=== PATIENT | male | born 1950 | race Caucasian/White ===

== ENCOUNTER 2025-05-28 12:18 | Inpatient (IN) | payer MEDICARE, SELFPAY ==
--- OUTSIDE RECORDS SUMMARY | 2025-05-18 08:37 | XMS_ITS | Continuity of Care Document ---
Author Organization [facility] Address [facility] [place] [address] Phone Care Team Providers Care Technical Operations Vice President Name Role Phone Dimitrios Lofton NP Unavailable Unavailable Allergies, Adverse Reactions, Alerts Substance Reaction Status Criticality erythromycin base Gastritis Active No Informa tion Medications Medication Instructions Dosage Effective Dates (start - stop) Status Comments sertraline 50 mg tablet take 1 tablet by oral route every day 50 MG - Active venlafaxine ER 75 mg capsule,extended release 24 hr take 1 capsule by oral route every day with food to replace sertraline; after 6 days increase to two daily - Active lisinopril 10 mg tablet take 1 tablet by oral route every day 10 MG - Active spironolactone 25 mg tablet take 0.5 tablet by oral route every day 12.5 MG - Active Eliquis 5 mg tablet take 1 tablet by ora l route 2 times every day 5 MG - Active Farxiga 10 mg tablet take 1 tablet by or al route every day in the morning 10 MG - Active Atorvastatin Calcium Oral Tablet 10 MG TAKE 1 TABLET DAILY FOR CHOLESTEROL - Active Vitamin B-12 1,000 mcg tablet - Active Vitamin D3 50 mcg (2,000 unit) capsule take 1 capsule by oral route (OTC) - Active Procedures Procedure Date Office/Established Level 4 SYST BP LT 130 MM HG DIAST BP < 80 MM HG Visit Complexity Inherent to Certain E&M HG A1C LEVEL LT < 7.0% Office/Established Level 4 SYST BP >= 140 MM HG DIAST BP < 80 MM HG Visit Complexity Inherent to Certain E&M EKG(ELECTROCARDIOGRAM COMPLETE) 025 HG A1C LEVEL LT < 7.0% [facility] MED/CURRENT MED MERGE Echo Color Doppler (TTE W/ Doppler, Comp lete) (TC) Echo Color Doppler (TTE W/ Doppler, Comp lete) (Interp) US Head And Neck (Thyroid) Adult & Pedia tric evaluation Office/Established Level 4 HG A1C LEVEL LT < 7.0% COMP CBC W/AUTO DIFF WBC METABOLIC PANEL TOTAL CA URINALYSIS AUTO W/SCOPE ROUTINE VENIPUNCTURE Office/Established Level 4 SYST BP >= 140 MM HG DIAST BP 80-89 MM HG Visit Complexity Inherent to Certain E&M EKG(ELECTROCARDIOGRAM COMPLETE) HG A1C LEVEL LT < 7.0% HOME VISIT EST PATIENT SYST BP LT 130 MM HG DIAST BP < 80 MM HG HG A1C LEVEL LT < 7.0% [facility] MED/CURRENT MED MERGE Office/Established Level 5 SYST BP LT 130 MM HG DIAST BP < 80 MM HG HG A1C LEVEL LT < 7.0% Visit Complexity Inherent to Certain E&M URINALYSIS AUTO W/O SCOPE X-RAY CHEST (2 View) EKG(ELECTROCARDIOGRAM COMPLETE) SYST BP GE 130 - 139MM HG DIAST BP >= 90 MM HG Office/Established Level 5 HG A1C LEVEL LT < 7.0% Initial Hospital Care 3 Initial Hospital Care 2 SUBSEQUENT HOSPITAL CARE SUBSEQUENT HOSPITAL CARE SUBSEQUENT HOSPITAL CARE SUBSEQUENT HOSPITAL CARE SUBSEQUENT HOSPITAL CARE MODERATE SEDATION, INITIAL 15 MINS, PAT 5 OR OLDER L HRT CATH W/ANGIO OF ARTERY (Interp) SUBSEQUENT HOSPITAL CARE SUBSEQUENT HOSPITAL CARE CARDIOVERSION ELECTRIC EXT MCR Split/Shared Visit ECHO TRANSESOPHAGEAL (Interp) Doppler Color Flow Add-On (Inter) SUBSEQUENT HOSPITAL CARE SUBSEQUENT HOSPITAL CARE HOSPITAL DISCHARGE DAY Office/Established Level 4 SYST BP >= 140 MM HG DIAST BP 80-89 MM HG Visit Complexity Inherent to Certain E&M HG A1C LEVEL LT < 7.0% Excision of nail, partial or complete Nitin Office/New Level 4 HG A1C LEVEL LT < 7.0% US URINE CAPACITY MEASURE Office/Established Level 4 HG A1C LEVEL LT < 7.0% Medicare Subseq Well Vis Office/Established Level 4 SYST BP GE 130 - 139MM HG DIAST BP < 80 MM HG HG A1C LEVEL LT < 7.0% Hemoglobin A1c ASSAY OF PSA TOTAL LIPID PANEL ROUTINE VENIPUNCTURE Office/Established Level 4 SYST BP >= 140 MM HG DIAST BP >= 90 MM HG HG A1C LEVEL LT < 7.0% Pure Tone Audio, Air Threshold and Recognition Tympanometry Office/Established Level 4 Visit Complexity Inherent to Certain E&M SYST BP LT 130 MM HG DIAST BP < 80 MM HG HG A1C LEVEL LT < 7.0% ROUTINE VENIPUNCTURE Hemoglobin A1c ASSAY OF PSA TOTAL LIPID PANEL US URINE CAPACITY MEASURE URINALYSIS AUTO W/O SCOPE Office/Established Level 4 HG A1C LEVEL LT < 7.0% ROUTINE VENIPUNCTURE Medicare Subseq Well Vis Depression screen annual Behavior university counselor obesity 15m SYST BP GE 130 - 139MM HG DIAST BP 80-89 MM HG HG A1C LEVEL LT < 7.0% Office/Established Level 4 LIPID PANEL ROUTINE VENIPUNCTURE Hemoglobin A1c ASSAY OF PSA TOTAL Office/Established Level 4 ROUTINE VENIPUNCTURE Hemoglobin A1c HEPATITIS C AB TEST LIPID PANEL COMPREHEN METABOLIC PANEL Admin pneumococcal vaccine Pneumonia vaccine Medicare Subseq Well Vis SYST BP GE 130 - 139MM HG DIAST BP < 80 MM HG VITAMIN D 25 HYDROXY LIPID PANEL ROUTINE VENIPUNCTURE Office/Established Level 3 ROUTINE VENIPUNCTURE Office/Established Level 4 SYST BP GE 130 - 139MM HG DIAST BP 80-89 MM HG ROUTINE VENIPUNCTURE Office/Established Level 3 Colon-Rem Polyp Snare Removal Impacted Cerumen Office/New Level 4 Comprehensive Audiometry Tympanometry Brief Emotional/behavioral A ssessment W/scoring And Documentation Per Stand. Ins Office/Established Level 4 SYST BP LT 130 MM HG DIAST BP < 80 MM HG ASSAY THYROID STIM HORMONE ASSAY OF PSA TOTAL COMPLETE CBC AUTOMATED VITAMIN D 25 HYDROXY LIPID PANEL HEPATIC FUNCTION PANEL METABOLIC PANEL TOTAL CA ROUTINE VENIPUNCTURE Office/Established Level 3 SYST BP LT 130 MM HG DIAST BP < 80 MM HG Office/Established Level 3 SYST BP >= 140 MM HG DIAST BP 80-89 MM HG URINALYSIS AUTO W/O SCOPE ROUTINE VENIPUNCTURE Admin pneumococcal vaccine Prevar Valent 13 Medicare Annual Well Visit SYST BP LT 130 MM HG DIAST BP < 80 MM HG LIPID PANEL ROUTINE VENIPUNCTURE SYST BP GE 130 - 139MM HG DIAST BP 80-89 MM HG Office/Established Level 4 US URINE CAPACITY MEASURE Office/New Level 3 URINALYSIS AUTO W/O SCOPE ROUTINE VENIPUNCTURE X-RAY CHEST (2 View) Office/Established Level 3 URINALYSIS AUTO W/O SCOPE Office/New Level 4 INFECTIOUS AGENT ANTIGEN DETECTION BY FIONA GONSALES Specimen handling fee Advance Directives Directive Yes / No Effective Date File Name No Information Encounters Encounter Description Practice Location Reason(s) For Visit Diagnoses Date Provider Providers Copied on Encounter [address] , [place], [place], [id number], [place] tel:[phone] Cardiology At [facility] No Information 5 Ismael Plunkett. [address] [place] [address] , [place], [id number], [place]. tel:[phone] Office/Estab lished Level [address] [place] [id number], [place] tel:[phone] [facility] < excessive sweating > (chief complaint) Generalized anxiety disorderDiap horesisBody mass index (BMI) 31.0-31.9, adult Sep- 5 Andre Anthony. [address] [place] [address], [address], [place]. tel:[phone] Referring Provider: Raj Pisano, [address] [place] [address], [facility]. tel:[phone] [place] [id number], [place] tel:[phone] [facility] No Information 5 Andre Anthony. [address] [place] [address], [address], [place]. tel:[phone] Office/Estab lished Level [address] [place], [id number], [place] tel:[phone] [facility] At [facility] CHF (chief complaint)CAD (chief complaint)car diomyopathy (chief complaint) Chronic systolic (congestive) heart failureNon-i schemic cardiomyopat hyTypical atrial flutterAther osclerosis of aki[place] coronary artery of [place] heart without angina pectorisMode rate pulmonary hypertension BradycardiaB linda mass index (BMI) 31.0-31.9, adult 5 Ismael Plunkett. [address] [place] [address] , [place], [place], [id number], [place]. tel: [phone] Referring Provider: Dimitrios Guevara, [address] [place] [address] , [place], [address] . tel:[phone] , [place], [place], [id number], [place] tel: [phone] Special Testing At [facility] No Information Unidentifie d Provider. [address] [place] [address], [address], [place]. Referring Provider: Dimitrios Guevara, [address] [place] [address] , [place], [address] . tel:[phone] Office/Estab lished Level [address] , [place], [place], [id number], [place] tel: [phone] [facility] [place] [address] neck mass (chief complaint) Localized swelling, mass and lump, neckNontoxic multinodular goiterBody mass index (BMI) 32.0-32.9, adult 5 Sky Barlow. [address] [place] [address], [id number], [place]. tel: [phone] Referring Provider: Cain Swanson, [address] [place] [address], [address] . tel:[phone] , [place], [place], [id number], [place] tel: [phone] [facility] At [facility] Acute kidney failure, unspecified 5 Andre Anthony. [address] [place] [address], [address], [place]. tel: [phone] Referring Provider: Raj Pisano, [address] [place] [address], [address]. tel:[phone] Office/Estab lished Level [address] , [place], [id number], [place] [phone] [facility] CHF (chief complaint)car diomyopathy (chief complaint)Lindsey b* (chief complaint)CAD (chief complaint) Chronic systolic (congestive) heart failureTypic al atrial flutterNonis chemic cardiomyopat hyAtheroscle rosis of aki[place] coronary artery of [place] heart without angina pectorisPulm onary hypertension Essential hypertension Body mass index (BMI) 32.0-32.9, adult 5 Ismael Plunkett. [address] [place] [address] , [place], [place], [id number], [place]. [phone] Referring Provider: Lila Perez, [address] [place] [address] , [place], [address] . tel:[phone] HOME VISIT EST PATIENT [address] , [place], [id number], [place] tel:[phone] Home ongoing hospital follow up (chief complaint) HFrEF (heart failure with reduced ejection fraction)Atr ial flutter, unspecified typeMedicati on managementLe ft thyroid nodule 5 Imtiaz Ramírez. [address] [place] [address], [place], [address], [place]. [phone] Referring Provider: Raj Pisano, [address] [place] [address], [address]. tel:[phone] Office/Estab lished Level [address] [place], [id number], [place] [phone] [facility] Follow Up of Transition into Care (chief complaint) Body mass index [BMI] 32.0-32.9, adultAtrial flutter, unspecified typeNon-isch emic cardiomyopat hyBilateral pleural effusionAcut e kidney injuryLeft thyroid noduleRight bundle branch blockModerat e pulmonary hypertension Encounter for follow-up examination after completed treatment for conditions other than malignant neoplasm 5 Andre Anthony. [address] [place] [address], [address], [place]. [phone] Referring Provider: Raj Pisano, [address] [place] [address], [address]. tel:[phone] [place], [id number], [place] tel:[phone] [facility] Unspecified symptoms and signs involving the genitourinar y system 5 Jose Manuel Gordon. [address] [place] [address], [address], [place]. tel:[phone] Referring Provider: Heidi Richard, [address] [place] [address], [address]. tel:[phone] [place], [id number], [place] tel:[phone] [facility] No Information 5 Jose Manuel Gordon. [address] [place] [address], [address], [place]. tel:[phone] Referring Provider: Heidi Richard, [address] [place] [address], [address]. tel:[phone] [facility] Level [address] [place], [id number], [place] tel:[phone] [facility] URI (chief complaint) Urinary symptom or signSOB (shortness of breath)Gener alized weaknessSinu s tachycardiaB linda mass index (BMI) 34.0-34.9, adult 5 Jose Manuel Gordon. [address] [place] [address], [address], [place]. tel:[phone] Referring Provider: Heidi Richard, [address] [place] [address], [address]. tel:[phone] [facility] [address] [place], [id number], [place] tel:[phone] [facility] IP No Information 5 Corrales Wendy. [address] [place] [address], [address], [place]. tel:[phone] Referring Provider: Yue Corrales, [address] [place] [address], [address]. tel:[phone] [facility] [address] , [place], [place], [id number], [place] tel: [phone] [facility] IP No Information 5 Jayce Brannon. [address] [place] [address] , [place], [place], [id number], [place]. tel: [phone] Referring Provider: Clovis Eduardo, [address] [place] [address] , [place], [address] . tel:[phone] [facility] [address] , [place], [id number], [place] tel: [phone] [facility] IP No Information 5 Herminio Melissa. [address] [place] [address], [id number], [place]. tel:[phone] Referring Provider: Shin Durham, [address] [place] [address], [address] . tel:[phone] [facility] [address] , [place], [place], [id number], [place] tel: [phone] [facility] IP No Information 5 Herminio Melissa. [address] [place] [address], [id number], [place]. tel:[phone] Referring Provider: Shin Durham, [address] [place] [address], [address] . tel:[phone] Initial Hospital Care [address] [place] [address] , [place], [place], [id number], [place] tel: [phone] [facility] IP No Information 5 Otilia Contreras. [address] [place] [address], [id number], [place]. tel:[phone] Referring Provider: Ben Bingham, [address] [place] [address], [address] . tel:[phone] Initial Hospital Care [address] , [place], [address], [place] [phone] [facility] IP No Information 5 Maximino Salazar. [facility], [address], [place], [address], [place]. tel:[phone] Referring Provider: Martin Stanton, [address] [place] [address] [address], [place], [address]. tel:[phone] , [place], [id number], [place] [phone] [facility] IP No Information 5 Jayce Brannon. [address] [place] [address] , [place], [place], [id number], [place]. tel:[phone] Referring Provider: Clovis Eduardo, [address] [place] [address] , [place], [address] . tel:[phone] , [place], [id number], [place] tel:[phone] [facility] No Information 5 Andre Anthony. [address] [place] [address], [address], [place]. tel:[phone] Office/Estab lished Level [address] [place], [id number], [place] tel:[phone] [facility] Follow Up of Chronic conditions (chief complaint) Body mass index [BMI] 33.0-33.9, adultElevate d prostate specific antigen [PSA]Essenti al (primary) hypertension Benign head tremorOther and unspecified hyperlipidem iaDepression , major, recurrent, in partial remissionImp aired fasting glucoseMorbi d (severe) obesity due to excess calories 5 Andre Anthony. [address] [place] [address], [address], [place]. tel: [phone] Referring Provider: Raj Pisano, [address] [place] [address], [address]. tel:[phone] Office/New Level [address] [place], [id number], [place] tel: [phone] [facility]le At [facility] Foot Pain (chief complaint) Ingrowing nailHallux valgus with bunions of left footBunion of left foot 5 Noble Toscano. [address] [place] [address] , [place], [place], [id number], [place]. tel:[phone] Referring Provider: Everton Dickey, [address] [place] [address] , [place], [address] . tel:[phone] [facility] Level [address] [place], [id number], [place] tel:[phone] [facility] Elevated PSA (chief complaint)carlyle quency and urge (chief complaint) Elevated prostate specific antigen [PSA]Urgency of urination 4 Darryl Magallanes. [address] [place] [address], [id number], [place]. tel:[phone] Referring Provider: Elpidio Andrews, [address] [place] [address], [address] . tel:[phone] [facility] [address] [place], [id number], [place] tel:[phone] [facility] medicare preventive (chief complaint)Fol low Up of Chronic conditions (chief complaint) Body mass index [BMI] 34.0-34.9, adultEssenti al tremorEssent ial (primary) hypertension Other and unspecified hyperlipidem iaBenign prostatic hyperplasia with lower urinary tract symptoms, symptom details unspecifiedD epression, major, recurrent, in partial remissionEnc ounter for screening for depressionEn cntr for general adult medical exam w/o abnormal findings 4 Andre Anthony. [address] [place] [address], [address], [place]. tel: [phone] Referring Provider: Raj Pisano, [address] [place] [address], [address]. tel:[phone] , [place], [place], [id number], [place] tel: [phone] [facility] Impaired fasting glucoseBenig n prostatic hyperplasia with lower urinary tract symptomsEsse ntial (primary) hypertension 4 Andre Anthony. [address] [place] [address], [address], [place]. tel: [phone] Referring Provider: Raj Pisano, [address] [place] [address], [address]. tel:[phone] Office/Estab lished Level [address] [place], [id number], [place] tel: [phone] [facility] [place] [address] Tinnitus (chief complaint) Unspecified hearing loss, unspecified earSensorine ural hearing loss, bilateralTin nitusBody mass index (BMI) 33.0-33.9, adult 4 Mickie Brannon. [address] [place] [id number], [place]. tel: [phone] Referring Provider: Raj Pisano, [address] [place] [address], [address]. tel:[phone] , [place], [place], [id number], [place] tel: [phone] [facility] [place] [address] Tinnitus, bilateral 4 Wilber Bruce. [address] [place] [address], [address], [place]. tel: [phone] Referring Provider: Clovis Corado, [address] [place] [address], [address] . tel:[phone] Office/Estab lished Level [address] [place], [id number], [place] tel: [phone] [facility] Follow Up of Chronic conditions (chief complaint) Essential (primary) hypertension Depression, major, recurrent, in partial remissionOth er and unspecified hyperlipidem iaImpaired fasting glucoseBenig n prostatic hyperplasia with lower urinary tract symptoms, symptom details unspecifiedM ild cognitive impairmentTr emor of left handBenign head tremorTinnit us, bilateralBod y mass index (BMI) 36.0-36.9, adult 4 Andre Anthony. [address] [place] [address], [address], [place]. tel: [phone] Referring Provider: Raj Pisano, [address] [place] [address], [address]. tel:[phone] [place], [id number], [place] tel: [phone] [facility] Impaired fasting glucoseBenig n prostatic hyperplasia with lower urinary tract symptomsEsse ntial (primary) hypertension 4 Andre Anthony. [address] [place] [address], [address], [place]. tel: [phone] Referring Provider: Raj Pisano, [address] [place] [address], [address]. tel:[phone] Office/Estab lished Level [address] [place], [id number], [place] [phone] [facility] Elevated PSA (chief complaint) Elevated prostate specific antigen [PSA]Frequen cy of micturitionU rinary urgencyBody mass index (BMI) 35.0-35.9, adult 3 Darryl Magallanes. [address] [place] [address], [id number], [place]. tel: [phone] Referring Provider: Elpidio Andrews, [address] [place] [address], [address] . tel:[phone] [place], [id number], [place] tel: [phone] [facility] Impaired fasting glucose 3 Darryl Magallanes. [address] [place] [address], [id number], [place]. tel: [phone] Referring Provider: Elpidio Andrews, [address] [place] [address], [address] . tel:[phone] Office/Estab lished Level [address] [place], [id number], [place] tel: [phone] [facility] Medicare preventive (chief complaint)Fol low Up of Chronic conditions (chief complaint) Essential (primary) hypertension Depression, major, recurrent, in partial remissionBen ign head tremorTremor of left handImpaired fasting glucoseBenig n prostatic hyperplasia with lower urinary tract symptoms, symptom details unspecifiedV itamin D deficiencyEn counter for immunization Body mass index (BMI) 35.0-35.9, adultHyperli pidemia, unspecified Jun- 3 Andre Anthony. [address] [place] [address], [address], [place]. [phone] Referring Provider: Raj Pisano, [address] [place] [address], [address]. tel:[phone] [place], [id number], [place] tel:[phone] Lab At [facility] Essential (primary) hypertension Impaired fasting glucoseBenig n prostatic hyperplasia with lower urinary tract symptoms 3 Andre Anthony. [address] [place] [address], [address], [place]. tel:[phone] Referring Provider: Raj Pisano, [address] [place] [address], [address]. tel:[phone] [place], [id number], [place] tel:[phone] [facility] No Information 3 Andre Anthony. [address] [place] [address], [address], [place]. tel:[phone] [place], [id number], [place] [phone] [facility] Benign prostatic hyperplasia with lower urinary tract symptomsEnco unter for screening for diabetes mellitusImpa ired fasting glucose 3 Andre Anthony. [address] [place] [address], [address], [place]. [phone] Office/Estab lished Level [address] [place], [id number], [place] [phone] [facility] Encounter for screening for depressionBo dy mass index [BMI] 32.0-32.9, adultEssenti al (primary) hypertension Other and unspecified hyperlipidem iaTremor of left handBenign head tremorDepres yolanda, major, recurrent, in partial remission 3 Andre Anthony. [address] [place] [address], [address], [place]. [phone] Referring Provider: Raj Pisano, [address] [place] [address], [facility]. tel:[phone] [place], [id number], [place] [phone] [facility] Essential (primary) hypertension Encounter for screening for diabetes mellitusEnco unter for screening for other viral diseasesHype rlipidemia, unspecified 3 Francis Louie. [address] [place] [address], [address], [place]. tel:[phone] Referring Provider: Jacy Blanco, [address] [place] [address], [address]. tel:[phone] [place], [id number], [place] tel:[phone] [facility] medicare preventive (chief complaint) Body mass index [BMI] 31.0-31.9, adultEncount er for immunization Essential (primary) hypertension Other and unspecified hyperlipidem iaHistory of colon polypsBenign prostatic hyperplasia with lower urinary tract symptoms, symptom details unspecifiedV itamin D deficiencyCl ass 1 obesity due to excess calories with serious comorbidity and body mass index (BMI) of 31.0 to 31.9 in adultEncntr for general adult medical exam w/o abnormal findingsScre ening for viral diseaseScree gloria for diabetes mellitus (DM) 2 Francis Louie. [address] [place] [address], [address], [place]. [phone] Referring Provider: Jacy Blanco, [address] [place] [address], [facility]. tel:[phone] , [place], [place], [id number], [place] tel:[phone] [facility] Vitamin D deficiency, unspecifiedE ssential (primary) hypertension Benign prostatic hyperplasia with lower urinary tract symptoms 2 Andre Anthony. [address] [place] [address], [address], [place]. [phone] Referring Provider: Raj Pisano, [address] [place] [address], [address]. tel:[phone] [place], [id number], [place] [phone] [facility] No Information 2 Andre Anthony. [address] [place] [address], [address], [place]. [phone] Office/Estab lished Level [address] [place], [place], [id number], [place] tel:[phone] [facility] Elevated PSA (chief complaint) Elevated prostate specific antigen [PSA]Body mass index (BMI) 31.0-31.9, adult Sep-0 2 Darryl Magallanes. [address] [place] [address], [id number], [place]. tel:[phone] Referring Provider: Raj Pisano, [address] [place] [address], [address]. tel:[phone] , [place], [id number], [place] tel:[phone] [facility] Benign prostatic hyperplasia with lower urinary tract symptoms, symptom details unspecified 2 Darryl Magallanes. [address] [place] [address], [id number], [place]. tel:[phone] Referring Provider: Elpidio Andrews, [address] [place] [address], [address] . tel:[phone] Office/Estab lished Level [address] [place], [id number], [place] tel:[phone] [facility] Follow Up of Chronic conditions (chief complaint) Essential (primary) hypertension Other and unspecified hyperlipidem iaVitamin D deficiencyEr ectile dysfunction, unspecified erectile dysfunction typeBenign prostatic hyperplasia with lower urinary tract symptoms, symptom details unspecifiedB linda mass index (BMI) 31.0-31.9, adult 2 Andre Anthony. [address] [place] [address], [address], [place]. tel:[phone] Referring Provider: Raj Pisano, [address] [place] [address], [address]. tel:[phone] [place], [id number], [place] tel:[phone] [facility] Vitamin D deficiency, unspecified 2 Darryl Magallanes. [address] [place] [address], [id number], [place]. tel:[phone] Referring Provider: Elpidio Andrews, [address] [place] [address], [address] . tel:[phone] Office/Estab lished Level [address], [place], [place], [id number], [place] tel:[phone] [facility] Follow Up of Diverticulosi s (chief complaint) Diverticulos isHistory of colon polypsBody mass index (BMI) 31.0-31.9, adult 2 Amanda Patricia. [address] [facility], [address], [place], [address], [place]. tel:[phone] Referring Provider: Paul Michael, [facility]4 [facility] [address], [place], [address]. tel:[phone] , [place], [place], [id number], [place] tel:[phone] [facility] No Information 2 Guevara Miller. [facility]4 [facility], [address], [place], [address], [place]. tel:[phone] Referring Provider: Raj Pisano, [address] [place] [address], [address]. tel:[phone] Office/New Level [address] [place], [id number], [place] tel:[phone] [facility] [place] [address] ringing in ears (chief complaint) Unspecified hearing loss, unspecified earSensorine ural hearing loss, bilateralTin nitus of both earsImpacted cerumen, bilateralBod y mass index (BMI) 31.0-31.9, adult 2 Mickie Brannon. [address] [place] [address], [id number], [place]. tel:[phone] Referring Provider: Jacy Blanco, [address] [place] [address], [address]. tel:[phone] [place], [id number], [place] tel:[phone] [facility] [place] [address] Tinnitus of both earsSensorin eural hearing loss, bilateral 2 Wendie Magallanes. [address] [place], [address], [place]. tel: [phone] Referring Provider: Jacy Blanco, [address] [place] [address], [address]. tel:[phone] , [place], [id number], [place] tel: [phone] Surgery At [facility] History of colon polyps 2 Guevara Miller. [address] [facility], [address], [place], [address], [place]. tel: [phone] Office/Estab lished Level [address] [place], [id number], [place] tel: [phone] [facility] Follow Up of Chronic conditions (chief complaint) Essential (primary) hypertension Other and unspecified hyperlipidem iaTinnitus of both earsBenign prostatic hyperplasia with lower urinary tract symptoms, symptom details unspecifiedV itamin D deficiencyBo dy mass index (BMI) 32.0-32.9, adultEncntr for general adult medical exam w/o abnormal findings 2 Andre Anthony. [address] [place] [address], [facility], [place]. tel: [phone] Referring Provider: Jacy Blanco, [address] [place] [address], [address]. tel:[phone] [place], [id number], [place] tel: [phone] [facility] Hyperlipidem ia, unspecifiedE levated prostate specific antigen [PSA]Essenti al (primary) hypertension Vitamin D deficiency, unspecified 2 Francis Louie. [address] [place] [address], [address], [place]. tel: [phone] Referring Provider: Jacy Blanco, [address] [place] [address], [address]. tel:[phone] Office/Estab lished Level [address] [place], [id number], [place] tel: [phone] [facility] Follow Up of Hypertension (chief complaint)Fol low Up of Tinnitus (chief complaint) Body mass index (BMI) 32.0-32.9, adultEssenti al (primary) hypertension Tinnitus of both ears Apr-0 2 Francis Louie. [address] [place] [address], [address], [place]. tel: [phone] Referring Provider: Jacy Blanco, [address] [place] [address], [address]. tel:[phone] [facility] Level [address] [place], [id number], [place] tel: [phone] [facility] Elevated PSA (chief complaint) Elevated prostate specific antigen [PSA]Frequen cy of micturitionB linda mass index (BMI) 31.0-31.9, adult Paul- 2 Darryl Magallanes. [address] [place] [address], [id number], [place]. tel: [phone] Referring Provider: Elpidio Andrews, [address] [place] [address], [address] . tel:[phone] [place], [id number], [place] tel: [phone] [facility] Elevated prostate specific antigen [PSA] 1 Darryl Magallanes. [address] [place] [address], [id number], [place]. tel: [phone] Referring Provider: eRnae Navarro, [address] [place] [address], [address] . tel:[phone] [place], [id number], [place] tel: [phone] [facility] medicare preventive (chief complaint) Other and unspecified hyperlipidem iaVitamin D deficiencyEn counter for immunization Benign prostatic hyperplasia with lower urinary tract symptoms, symptom details unspecifiedE ncntr for general adult medical exam w/o abnormal findingsEsse ntial (primary) hypertension History of colon polypsElevat ed prostate specific antigen [PSA]Erectil e dysfunction, unspecified erectile dysfunction typeBody mass index (BMI) 32.0-32.9, adultClass 1 obesity due to excess calories with serious comorbidity and body mass index (BMI) of 32.0 to 32.9 in adult 1 Francis Jacy. [address] [place] [address], [address], [place]. [phone] Referring Provider: Renae Navarro, [address] [place] [address], [address] . tel:[phone] [place], [place], [id number], [place] [phone] [facility] Essential (primary) hypertension 1 Andre Anthony. [address] [place] [address], [address], [place]. [phone] Referring Provider: Renae Navarro, [address] [place] [address], [address] . tel:[phone] Office/Estab lished Level [address] [place], [id number], [place] tel:[phone] [facility] Follow Up of Chronic conditions (chief complaint) Benign prostatic hyperplasia with lower urinary tract symptoms, symptom details unspecifiedO ther and unspecified hyperlipidem iaEssential (primary) hypertension History of colon polypsBody mass index (BMI) 32.0-32.9, adultVitamin D deficiency 1 Andre Anthony. [address] [place] [address], [address], [place]. tel:[phone] Referring Provider: Raj Pisano, [address] [place] [address], [address]. tel:[phone] [place], [id number], [place] tel:[phone] [facility] Elevated prostate specific antigen [PSA] 1 Darryl Magallanes. [address] [place], [place], [id number], [place]. tel:[phone] Office/[facility] [address] , [place], [place], [id number], [place] [phone] [facility] Sexual dysfunction (chief complaint)Coby vated PSA (chief complaint) Urinary urgencyEleva guevara prostate specific antigen [PSA] 1 Darryl Magallanes. [facility]4 [place], [place], [id number], [place]. [phone] Referring Provider: Renae Navarro, [address] [place] [address], [address] . tel:[phone] , [place], [place], [id number], [place] tel:[phone] [facility] No Information 1 Kailey Garcia. [address] [place] [address], [address], [place]. tel:[phone] Referring Provider: Radha Bonner, [address] [place] [address], [address]. tel:[phone] Office/[facility] [address] , [place], [place], [id number], [place] tel:[phone] [facility] cough (chief complaint) CoughBody mass index (BMI) 32.0-32.9, adult 1 Kailey Garcia. [address] [place] [address], [address], [place]. tel:[phone] Referring Provider: Radha Bonner, [address] [place] [address], [address]. [phone] , [place], [place], [id number], [place] tel:[phone] [facility] Urgency of urination 1 Ramon Macdonald. [address] [place] [address], [id number], [place]. tel:[phone] Referring Provider: Renae Navarro, [address] [place] [address], [address] . tel:[phone] Office/[address] [place], [place], [id number], [place] tel:[phone] [facility] Cough (chief complaint) CoughUrinary urgencySeaso nal allergiesBod y mass index (BMI) 32.0-32.9, adult December- 1 Ramon Macdonald. [address] [place] [address], [id number], [place]. tel:[phone] Referring Provider: Renae Navarro, [address] [place] [address], [address] . tel:[phone] Family History Family Member Type Diagnosis Age At Onset Son Problem Alive and well Problem No family history of Cancer, bladder Brother Problem Substance Abuse Problem Family history of prostate c ancer Father Problem Bilateral Leg Amputation Problem No family history of Stroke Sister Problem Substance Abuse Father Problem Advanced Atherosclerosis Problem No family history of Diabete s mellitus Problem No family history of Cancer, kidney Sister Problem (finding) Brother Problem (finding) Problem No family histor y of Congenital heart disease Father Problem (finding) Son Problem Non Hodgkins Lymphoma 28 Immunizations Vaccine Date Status Comments COVID19 [id number] (Moderna- SPIKEVAX) 12y+ administered Note: [facility] ; Source: Other Provider Fluzone High Dose (65y+) administered Not e: [facility] ; Source: Other Provider COVID-19 Vaccine (Moderna) administered N ote: [facility] recorded by Josefina JEONG on 06/04/2023 ; Source: Public Agency Fluzone HD 65+ administered Note: [facility] rec orded by Josefina JEONG on 06/04/2023 ; Source: School Record Pneumococcal polysaccharide PPV23 administered Source: New Immuniza tion Record COVID-19 Vaccine (Moderna) administered N ote: [facility] ; Source: Public Agency Fluzone HD 65+ administered Note: [facility] ; S ource: Public Agency COVID-19 Vaccine (Moderna) administered N ote: [facility] recorded by Josefina JEONG ; Source: Public Agency COVID-19 Vaccine (Moderna) administered N ote: [facility] recorded by Josefina JEONG ; Source: Public Agency Pneumococcal conjugate PCV 13 administere d Source: New Immunization Record Fluzone HD 65+ administered [facility] COVID-[facility] Vaccine (Moderna) administered N ote: dates estimated ; Source: Source Unspecified COVID-19 Vaccine (Moderna) administered S ource: Source Unspecified Fluarix 6m+/Flulaval 6m+/Fluzone 6m+/Afluria 6m+ administered Source: [facility] ce Unspecified Payers Payer name Insurance type Covered democrat ID Authoriza tion(s) [employer] Medicare - [id number] Human Medicare - [id number] Human Medicare - [id number] [facility] Medicare - [id number] Social History Type Description Quantity Date Captured Comments Alcohol Use Details Unknown Caffeine Use Details Unknown Tobacco Use Status No Information Smoking Status No Information Sex Male Chief Complaint And Reason For Visit No Information Reason For Referral Reason For Referral No Information Plan Of Treatment Date Type Action Status Goal Tobacco screenin g. Due on due Goal Shingrix 50mcg/0 .5ml (#2). Due on due Goal Hepatitis C screening due Goal Pneumovax 23 due Goal Zoster vaccine ( 1st). Due on due Goal Influenza Vaccin e. Due on due Goal Tdap. Due on due Goal Prevnar 13 (PCV13) due Goal Physical Exam. Due on due Goal Shingrix 50mcg/0 .5ml (#1). Due on due Goal Depression scree gloria. Due on due Goal Colonoscopy. Due on due Goal Diabetes screeni ng. Due on due Goal Td vaccine. Due on due Goal Shingrix 50mcg/0 .5ml (#2). Due on due Goal Colonoscopy. Due on due Goal Depression scree gloria. Due on due Goal Pneumovax 23 due Goal Tobacco screenin g. Due on due Goal Physical Exam. Due on due Goal Td vaccine. Due on due Goal Tdap. Due on due Goal Influenza Vaccin e. Due on due Goal Hepatitis C screening due Goal Shingrix 50mcg/0 .5ml (#1). Due on due Goal Prevnar 13 (PCV13) due Goal Diabetes screeni ng. Due on due Goal Zoster vaccine ( 1st). Due on due Goal Shingrix 50mcg/0 .5ml (#1). Due on due Goal Hepatitis C screening due Goal Tdap. Due on due Goal Pneumovax 23 due Goal Influenza Vaccin e. Due on due Goal Depression scree gloria. Due on due Goal Td vaccine. Due on due Goal Diabetes screeni ng. Due on due Goal Physical Exam. Due on due Goal Prevnar 13 (PCV13) due Goal Shingrix 50mcg/0 .5ml (#2). Due on due Goal Tobacco screenin g. Due on due Goal Zoster vaccine ( ). Due on due Goal Colonoscopy. Due on due Goal Td vaccine. Due on due Goal Depression scree gloria. Due on due Goal Diabetes screeni ng. Due on due Goal Shingrix 50mcg/0 .5ml (#2). Due on due Goal Prevnar 13 (PCV13) due Goal Colonoscopy. Due on due Goal Tdap. Due on due Goal Shingrix 50mcg/0 .5ml (#1). Due on due Goal Physical Exam. Due on due Goal Tobacco screenin g. Due on due Goal Hepatitis C screening due Goal Influenza Vaccin e. Due on due Goal Zoster vaccine ( ). Due on due Goal Pneumovax 23 due Goal Depression scree gloria. Due on due Goal Td vaccine. Due on due Goal Pneumovax 23 due Goal Colonoscopy. Due on due Goal Tobacco screenin g. Due on due Goal Influenza Vaccin e. Due on due Goal Shingrix 50mcg/0 .5ml (#2). Due on due Goal Hepatitis C screening due Goal Zoster vaccine ( ). Due on due Goal Shingrix 50mcg/0 .5ml (#1). Due on due Goal Diabetes screeni ng. Due on due Goal Tdap. Due on due Goal Physical Exam. Due on due Goal Prevnar 13 (PCV13) due Goal Hepatitis C screening due Goal Diabetes screeni ng. Due on due Goal Prevnar 13 (PCV13) due Goal Tobacco screenin g. Due on due Goal Depression scree gloria. Due on due Goal Physical Exam. Due on due Goal Td vaccine. Due on due Goal Tdap. Due on due Goal Influenza Vaccin e. Due on due Goal Zoster vaccine ( 1st). Due on due Goal Colonoscopy. Due on due Goal Pneumovax 23 due Goal Shingrix 50mcg/0 .5ml (#1). Due on due Goal Shingrix 50mcg/0 .5ml (#2). Due on due Goal Shingrix 50mcg/0 .5ml (#2). Due on due Goal Td vaccine. Due on due Goal Colonoscopy. Due on 027 due Goal Depression scree gloria. Due on due Goal Prevnar 13 (PCV13) due Goal Physical Exam. Due on due Goal Diabetes screeni ng. Due on due Goal Hepatitis C screening due Goal Influenza Vaccin e. Due on due Goal Zoster vaccine ( 1st). Due on due Goal Pneumovax 23 due Goal Tdap. Due on due Goal Shingrix 50mcg/0 .5ml (#1). Due on due Goal Tobacco screenin g. Due on due Goal Influenza Vaccin e. Due on due Goal Shingrix 50mcg/0 .5ml (#2). Due on due Goal Colonoscopy. Due on 027 due Goal Prevnar 13 (PCV13) due Goal Shingrix 50mcg/0 .5ml (#1). Due on due Goal Diabetes screeni ng. Due on due Goal Td vaccine. Due on 25 due Goal Depression scree gloria. Due on due Goal Pneumovax 23 due Goal Tobacco screenin g. Due on due Goal Physical Exam. Due on due Goal Tdap. Due on due Goal Hepatitis C screening due Goal Zoster vaccine ( ). Due on due Goal Dietary manageme nt education, guidance, and counseling completed Goal Physical Exam. Due on due Goal Shingrix 50mcg/0 .5ml (#1). Due on due Goal Depression scree gloria. Due on due Goal Zoster vaccine ( 1st). Due on due Goal Influenza Vaccin e. Due on due Goal Colonoscopy. Due on 027 due Goal Tdap. Due on due Goal Pneumovax 23 due Goal Tobacco screenin g. Due on due Goal Diabetes screeni ng. Due on due Goal Td vaccine. Due on 25 due Goal Hepatitis C screening due Goal Shingrix 50mcg/0 .5ml (#2). Due on due Goal Prevnar 13 (PCV13) due Goal Hepatitis C screening due Goal Prevnar 13 (PCV13) due Goal Physical Exam. Due on due Goal Diabetes screeni ng. Due on due Goal Shingrix 50mcg/0 .5ml (#2). Due on due Goal Pneumovax 23 due Goal Colonoscopy. Due on due Goal Tdap. Due on due Goal Zoster vaccine ( 1st). Due on due Goal Td vaccine. Due on due Goal Shingrix 50mcg/0 .5ml (#1). Due on due Goal Depression scree gloria. Due on due Goal Influenza Vaccin e. Due on due Goal Tobacco screenin g. Due on due Goal Dietary manageme nt education, guidance, and counseling completed Goal Tobacco screenin g. Due on due Goal Depression scree gloria. Due on due Goal Hepatitis C screening due Goal Shingrix 50mcg/0 .5ml (#2). Due on due Goal Influenza Vaccin e. Due on due Goal Colonoscopy. Due on due Goal Tdap. Due on due Goal Physical Exam. Due on due Goal Diabetes screeni ng. Due on due Goal Prevnar 13 (PCV13) due Goal Shingrix 50mcg/0 .5ml (#1). Due on due Goal Td vaccine. Due on due Goal Zoster vaccine ( 1st). Due on due Goal Pneumovax 23 due Goal Prevnar 13 (PCV13) due Goal Tdap. Due on due Goal Physical Exam. Due on due Goal Shingrix 50mcg/0 .5ml (#1). Due on due Goal Zoster vaccine ( 1st). Due on due Goal Hepatitis C screening due Goal Td vaccine. Due on due Goal Depression scree gloria. Due on due Goal Pneumovax 23 due Goal Colonoscopy. Due on due Goal Tobacco screenin g. Due on due Goal Shingrix 50mcg/0 .5ml (#2). Due on due Goal Influenza Vaccin e. Due on due Goal Diabetes screeni ng. Due on due Goal Prevnar 13 (PCV13) due Goal Zoster vaccine ( 1st). Due on due Goal Depression scree gloria. Due on due Goal Diabetes screeni ng. Due on due Goal Influenza Vaccin e. Due on due Goal Shingrix 50mcg/0 .5ml (#2). Due on due Goal Physical Exam. Due on due Goal Shingrix 50mcg/0 .5ml (#1). Due on due Goal Colonoscopy. Due on due Goal Hepatitis C screening due Goal Tdap. Due on due Goal Td vaccine. Due on due Goal Pneumovax 23 due Goal Dietary manageme nt education, guidance, and counseling completed Goal Zoster vaccine ( ). Due on due Goal Depression scree gloria. Due on due Goal Hepatitis C screening due Goal Colonoscopy. Due on due Goal Shingrix 50mcg/0 .5ml (#2). Due on due Goal Shingrix 50mcg/0 .5ml (#1). Due on due Goal Td vaccine. Due on due Goal Diabetes screeni ng. Due on due Goal Tdap. Due on due Goal Physical Exam. Due on due Goal Prevnar 13 (PCV13) due Goal Pneumovax 23 due Goal Influenza Vaccin e. Due on due Goal Hepatitis C screening due Goal Physical Exam. Due on due Goal Diabetes screeni ng. Due on due Goal Shingrix 50mcg/0 .5ml (#1). Due on due Goal Zoster vaccine ( ). Due on due Goal Influenza Vaccin e. Due on due Goal Pneumovax 23 due Goal Depression scree gloria. Due on due Goal Prevnar 13 (PCV13) due Goal Colonoscopy. Due on due Goal Tdap. Due on due Goal Shingrix 50mcg/0 .5ml (#2). Due on due Goal Td vaccine. Due on due Goal Shingrix 50mcg/0 .5ml (#1). Due on due Goal Td vaccine. Due on due Goal Physical Exam. Due on due Goal Prevnar 13 (PCV13) due Goal Colonoscopy. Due on due Goal Influenza Vaccin e. Due on due Goal Depression scree gloria. Due on due Goal Zoster vaccine ( 1st). Due on due Goal Shingrix 50mcg/0 .5ml (#2). Due on due Goal Hepatitis C screening due Goal Pneumovax 23 due Goal Diabetes screeni ng. Due on due Goal Tdap. Due on due Goal Physical Exam. Due on due Goal Colonoscopy. Due on due Goal Prevnar 13 (PCV13) due Goal Tdap. Due on due Goal Td vaccine. Due on due Goal Depression scree gloria. Due on due Goal Pneumovax 23 due Goal Hepatitis C screening due Goal Influenza Vaccin e. Due on due Goal Diabetes screeni ng. Due on due Goal Zoster vaccine ( 1st). Due on due Goal Shingrix 50mcg/0 .5ml (#2). Due on due Goal Shingrix 50mcg/0 .5ml (#1). Due on due Goal Influenza Vaccin e. Due on due Goal Zoster vaccine ( 1st). Due on due Goal Diabetes screeni ng. Due on due Goal Shingrix 50mcg/0 .5ml (#1). Due on due Goal Pneumovax 23 due Goal Prevnar 13 (PCV13) due Goal Depression scree gloria. Due on due Goal Shingrix 50mcg/0 .5ml (#2). Due on due Goal Colonoscopy. Due on 027 due Goal Td vaccine. Due on 24 due Goal Tdap. Due on due Goal Hepatitis C screening due Goal Physical Exam. Due on due Goal Zoster vaccine ( 1st). Due on due Goal Shingrix 50mcg/0 .5ml (#2). Due on due Goal Hepatitis C screening due Goal Prevnar 13 (PCV13) due Goal Shingrix 50mcg/0 .5ml (#1). Due on due Goal Diabetes screeni ng. Due on due Goal Depression scree gloria. Due on due Goal Td vaccine. Due on due Goal Pneumovax 23 due Goal Physical Exam. Due on due Goal Influenza Vaccin e. Due on due Goal Tdap. Due on due Goal Colonoscopy. Due on due Goal Colonoscopy. Due on due Goal Depression scree gloria. Due on due Goal Shingrix 50mcg/0 .5ml (#1). Due on due Goal Diabetes screeni ng. Due on due Goal Shingrix 50mcg/0 .5ml (#2). Due on due Goal Hepatitis C screening due Goal Zoster vaccine ( 1st). Due on due Goal Tdap. Due on due Goal Pneumovax 23 due Goal Td vaccine. Due on due Goal Physical Exam. Due on due Goal Prevnar 13 (PCV13) due Goal Influenza Vaccin e. Due on due Goal Shingrix 50mcg/0 .5ml (#2). Due on due Goal Prevnar 13 (PCV13) due Goal Pneumovax 23 due Goal Zoster vaccine ( 1st). Due on due Goal Influenza Vaccin e. Due on due Goal Colonoscopy. Due on due Goal Depression scree gloria. Due on due Goal Physical Exam. Due on due Goal Diabetes screeni ng. Due on due Goal Hepatitis C screening due Goal Td vaccine. Due on due Goal Shingrix 50mcg/0 .5ml (#1). Due on due Goal Tdap. Due on due Goal Pneumovax 23 due Goal Diabetes screeni ng. Due on due Goal Td vaccine. Due on due Goal Physical Exam. Due on due Goal Zoster vaccine ( 1st). Due on due Goal Colonoscopy. Due on due Goal Shingrix 50mcg/0 .5ml (#1). Due on due Goal Tdap. Due on due Goal Influenza Vaccin e. Due on due Goal Shingrix 50mcg/0 .5ml (#2). Due on due Goal Hepatitis C screening due Goal Prevnar 13 (PCV13) due Goal Depression scree gloria. Due on due Goal Zoster vaccine ( 1st). Due on due Goal Physical Exam. Due on due Goal Shingrix 50mcg/0 .5ml (#1). Due on due Goal Diabetes screeni ng. Due on due Goal Prevnar 13 (PCV1 3). Due on due Goal Depression scree gloria. Due on due Goal Hepatitis C screening due Goal Tdap. Due on due Goal Influenza Vaccin e. Due on due Goal Td vaccine. Due on due Goal Shingrix 50mcg/0 .5ml (#2). Due on due Goal Colonoscopy. Due on 027 due Goal Pneumovax 23. Due on 2071 due Goal Dietary manageme nt education, guidance, and counseling completed Goal Pneumovax 23. Due on 2071 due Goal Shingrix 50mcg/0 .5ml (#1). Due on due Goal Td vaccine. Due on 22 due Goal Prevnar 13 (PCV1 3). Due on due Goal Shingrix 50mcg/0 .5ml (#2). Due on due Goal Influenza Vaccin e. Due on due Goal Physical Exam. Due on due Goal Tdap. Due on due Goal Depression scree gloria. Due on due Goal Hepatitis C scre ening. Due on due Goal Colonoscopy. Due on due Goal Zoster vaccine ( 1st). Due on due Goal Diabetes screeni ng. Due on due Goal Dietary manageme nt education, guidance, and counseling completed Goal Td vaccine. Due on due Goal Depression scree gloria. Due on due Goal Tdap. Due on due Goal Colonoscopy. Due on due Goal Shingrix 50mcg/0 .5ml (#1). Due on due Goal Shingrix 50mcg/0 .5ml (#2). Due on due Goal Physical Exam. Due on due Goal Hepatitis C scre ening. Due on due Goal Pneumovax 23. Due on 2021 due Goal Zoster vaccine ( 1st). Due on due Goal Influenza Vaccin e. Due on due Goal Prevnar 13 (PCV1 3). Due on due Goal Physical Exam. Due on due Goal Prevnar 13 (PCV1 3). Due on due Goal Shingrix 50mcg/0 .5ml (#2). Due on due Goal Influenza Vaccin e. Due on due Goal Tdap. Due on due Goal Colonoscopy. Due on due Goal Zoster vaccine ( 1st). Due on due Goal Shingrix 50mcg/0 .5ml (#1). Due on due Goal Pneumovax 23. Due on 2021 due Goal Td vaccine. Due on due Goal Hepatitis C scre ening. Due on due Goal Depression scree gloria. Due on due Goal Depression scree gloria. Due on due Goal Pneumovax 23. Due on 2021 due Goal Tdap. Due on due Goal Prevnar 13 (PCV1 3). Due on due Goal Shingrix 50mcg/0 .5ml (#2). Due on due Goal Colonoscopy. Due on 027 due Goal Influenza Vaccin e. Due on due Goal Td vaccine. Due on due Goal Physical Exam. Due on due Goal Zoster vaccine ( ). Due on due Goal Shingrix 50mcg/0 .5ml (#1). Due on due Goal Hepatitis C scre ening. Due on due Goal Influenza Vaccin e. Due on due Goal Pneumovax 23. Due on 2021 due Goal Zoster vaccine ( ). Due on due Goal Physical Exam. Due on due Goal Td vaccine. Due on due Goal Colonoscopy. Due on 027 due Goal Shingrix 50mcg/0 .5ml (#1). Due on due Goal Depression scree gloria. Due on due Goal Tdap. Due on due Goal Shingrix 50mcg/0 .5ml (#2). Due on due Goal Hepatitis C scre ening. Due on due Goal Prevnar 13 (PCV1 3). Due on due Goal Influenza Vaccin e. Due on due Goal Shingrix 50mcg/0 .5ml (#2). Due on due Goal Depression scree gloria. Due on due Goal Pneumovax 23. Due on 2021 due Goal Shingrix 50mcg/0 .5ml (#1). Due on due Goal Td vaccine. Due on due Goal Colonoscopy. Due on due Goal Zoster vaccine ( 1st). Due on due Goal Tdap. Due on due Goal Diabetes screeni ng. Due on due Goal Prevnar 13 (PCV1 3). Due on due Goal Hepatitis C scre ening. Due on due Goal Physical Exam. Due on due Goal Td vaccine. Due on due Goal Prevnar 13 (PCV1 3). Due on due Goal Physical Exam. Due on due Goal Shingrix 50mcg/0 .5ml (#1). Due on due Goal Shingrix 50mcg/0 .5ml (#2). Due on due Goal Depression scree gloria. Due on due Goal Influenza Vaccin e. Due on due Goal Pneumovax 23. Due on 2021 due Goal Zoster vaccine ( ). Due on due Goal Colonoscopy. Due on due Goal Hepatitis C scre ening. Due on due Goal Diabetes screeni ng. Due on due Goal Tdap. Due on due Goal Zoster vaccine ( 1st). Due on due Goal Shingrix 50mcg/0 .5ml (#1). Due on due Goal Prevnar 13 (PCV1 3). Due on due Goal Pneumovax 23. Due on 2021 due Goal Influenza Vaccin e. Due on due Goal Tdap. Due on due Goal Physical Exam. Due on due Goal Td vaccine. Due on due Goal Depression scree gloria. Due on due Goal Colonoscopy. Due on due Goal Colonoscopy. Due on due Goal Depression scree gloria. Due on due Goal Td vaccine. Due on due Goal Sigmoidoscopy. Due on due Goal Influenza Vaccin e. Due on due Goal Physical Exam. Due on due Goal Prevnar 13 (PCV1 3). Due on due Goal Tdap. Due on due Goal FOBT. Due on due Goal Pneumovax 23. Due on 2021 due Goal Shingrix 50mcg/0 .5ml (#1). Due on due Goal Zoster vaccine ( 1st). Due on due Goal Influenza Vaccin e. Due on due Goal Shingrix 50mcg/0 .5ml (#1). Due on due Goal Sigmoidoscopy. Due on due Goal Pneumovax 23. Due on 2021 due Goal Tdap. Due on due Goal Prevnar 13 (PCV1 3). Due on due Goal Td vaccine. Due on due Goal Colonoscopy. Due on due Goal FOBT. Due on due Goal Zoster vaccine ( 1st). Due on due Goal Depression scree gloria. Due on due Goal Physical Exam. Due on due Goal Colonoscopy. Due on due Goal Depression scree gloria. Due on due Goal Td vaccine. Due on due Goal Sigmoidoscopy. Due on due Goal Tdap. Due on due Goal Zoster vaccine ( 1st). Due on due Goal Physical Exam. Due on due Goal FOBT. Due on due Goal Pneumovax 23. Due on 2021 due Goal Influenza Vaccin e. Due on due Goal Prevnar 13 (PCV1 3). Due on due Goal Shingrix 50mcg/0 .5ml (#1). Due on due Goal Sigmoidoscopy. Due on due Goal Tdap. Due on due Goal Pneumovax 23. Due on 2021 due Goal Physical Exam. Due on due Goal Depression scree gloria. Due on due Goal Td vaccine. Due on due Goal Prevnar 13 (PCV1 3). Due on due Goal Zoster vaccine ( 1st). Due on due Goal Shingrix 50mcg/0 .5ml (#1). Due on due Goal Influenza Vaccin e. Due on due Goal FOBT. Due on due Goal Colonoscopy. Due on due Goal FOBT. Due on due Goal Colonoscopy. Due on due Goal Tdap. Due on due Goal Pneumovax 23. Due on 2021 due Goal Influenza Vaccin e. Due on due Goal Physical Exam. Due on due Goal Td vaccine. Due on due Goal Zoster vaccine ( 1st). Due on due Goal Sigmoidoscopy. Due on due Goal Depression scree gloria. Due on due Goal Shingrix 50mcg/0 .5ml (#1). Due on due Goal Prevnar 13 (PCV1 3). Due on due Goal Dietary manageme nt education, guidance, and counseling completed Goal Tdap (Peds). Due on due Goal Depression scree gloria. Due on due Goal Pneumovax 23. Due on 2021 due Goal Tdap. Due on due Goal Td vaccine. Due on due Goal Influenza Vaccin e. Due on due Goal Colonoscopy. Due on due Goal Zoster vaccine ( 2nd). Due on due Goal Prevnar 13 (PCV1 3). Due on due Goal Zoster vaccine ( 1st). Due on due Goal Physical Exam. Due on due Goal Td vaccine. Due on 21 due Goal Zoster vaccine ( 1st). Due on due Goal Depression scree gloria. Due on due Goal Prevnar 13 (PCV1 3). Due on due Goal Influenza Vaccin e. Due on due Goal Tdap (Peds). Due on 021 due Goal Physical Exam. Due on due Goal Tdap. Due on due Goal Pneumovax 23. Due on 2020 due Goal Colonoscopy. Due on 022 due Referral Ordered: Referrals: Otolaryngology. Follow-up and Treat. Diagnostic testing Appointment date/timeframe: Routine ordered Referral Ordered: Referrals: Otolaryngology. Consult ordered Referral Ordered: Referrals: Audiology. Evaluate and treat ordered Referral Ordered: Referrals: Gastroenterology. Evaluate and treat. Diagnostic testing Appointment date/timeframe: Routine ordered Appointment [facility] App[facility]ment [facility] App[facility]ment [facility] App[facility]ment [facility] Patient Education Tinnitus: Care Instruct ions completed Future Order: Radiology Order EC HO, Complete ([id number]), Sent on: Sent Future Order: Radiology Order US Head And Neck (Thyroid) Adult & Pediatric evaluation ([id number]), Sent on: Sent Future Order: Radiology Order XR CHEST TWO VIEWS ([id number]), Collected on: , Sent on: Sent Future Order: Lab Order Urinalys is, Routine ([id number]), Sent on: Sent Future Order: Radiology Order XR CHEST TWO VIEWS ([id number]), Collected on: , Sent on: Sent History Of Present Illness Encounter Date Complaint History Of Prese nt Illness < excessive sweating > CHF The patient is c urrently on the following: ZAY inhibitor or ARB (lisinopril 5 mg tablet), Beta Harshad Therapy LVSD (Toprol XL 25 mg tablet,extended release), Aldost Antag (spironolactone 25 mg tablet), Antiplatelet/Anticoag (Eliquis 5 mg tablet), Beta Harshad Therapy (Toprol XL 25 mg tablet,extended release). CAD The patient visi ts the office to be evaluated for coronary artery disease (CAD). The patient is currently on the following: ZAY inhibitor or ARB (lisinopril 5 mg tablet), Beta Harshad Therapy (Toprol XL 25 mg tablet,extended release), Lipid Lowering (Atorvastatin Calcium Oral Tablet 10 MG). He is not on the following: Aspirin and Other Anti-thrombotics. cardiomyopathy neck mass CAD The patient visi ts the office to be evaluated for coronary artery disease (CAD). The patient is currently on the following: ZAY inhibitor or ARB (lisinopril 5 mg tablet), Beta Harshad Therapy (metoprolol tartrate 25 mg tablet), Lipid Lowering (Atorvastatin Calcium Oral Tablet 10 MG). He is not on the following: Aspirin and Other Anti-thrombotics. cardiomyopathy Afib* The patient is b eing evaluated for atrial flutter (). The CHADS2 recommendation scoring is incomplete. CHF The patient is c urrently on the following: ZAY inhibitor or ARB (lisinopril 5 mg tablet), Aldost Antag (spironolactone 25 mg tablet), Antiplatelet/Anticoag (Eliquis 5 mg tablet), Beta Harshad Therapy (metoprolol tartrate 25 mg tablet). He is not on the following: Beta Harshad Therapy LVSD. Follow Up of Transition into Car e Date of Discharge: 2024Date family/patient contacted office: 2024Visit Date: 2024Persons Present at Visit: self and spousePlace of Service: OfficeDischarge Summary Reviewed: YesAccess to Care: Yes Access to medications: Access to Transportation: YesEquipment/Devices: declined life vestAccess to Home Health Care/Community Services: Questions/Comments: admitted for non ischemic cardiomyopathy; atrial flutter; saw Cardiology and hospitalists at [facility] URI The symptoms beg an 1 week ago. The patient presents with fatigue, generalized weakness and nausea. The patient does not present with chills, cough, diarrhea, earache, fever, headache, myalgia or pharyngitis. The symptoms are aggravated by stress. The illness is associated with change in sleep cycle and dyspnea. Follow Up of Chronic conditions Follow Up of Chronic conditions 1) Essential (primary) hypertension (Controlled. takes medication regularly, no headache, no chest pain, no shortness of breath, no palpitations, watching salt in diet, trying to exercise) 2) Benign head tremor (Controlled. the propranolol did not work well, stopped it; has been taking extra B vitamins and it's helped, so monitoring) 3) Other and unspecified hyperlipidemia (Controlled. taking statin regularly, tolerates it well, watches diet, adding fiber to diet) 4) Depression, major, recurrent, in partial remission (Controlled. taking medication regularly, mood is fairly well controlled, no suicidal thoughts, sleep is reasonable) 5) Impaired fasting glucose (Stable. avoiding sugar, exercising regularly, watching carbohydrates, trying to maintain good weight; no polyuria, polydipsia or blurring of vision) Associated symptoms include weight loss. Pertinent negatives include fatigue and pain. Blood pressure classification is stage 1 hypertension. Foot Pain Onset: gradual. Duration: 3 Weeks. Severity level is 4. It occurs intermittently and is fluctuating. Location: left foot (big toe). There is no radiation. The pain is dull. Context: there is no injury. The pain is aggravated by walking and standing. The pain is relieved by rest. Pertinent negatives include bruising, crepitus, decreased mobility, difficulty initiating sleep, joint instability, joint tenderness, limping, locking, nocturnal awakening, nocturnal pain, numbness, popping, spasms, swelling, tingling in the legs and weakness. Additional information: Pt. presents for left great toenail ingrown. Pt. is having pain in left great toe from ingrown toenail. Elevated PSA The problem is c urrently stable. The patient's most recent PSA was 4.1 ng/mL taken on 08/02/2024. Pertinent history includes age over 50 and BPH. The patient does not report modifying factors such as medication or recent 5 SARMAD. Associated symptoms include frequent urination. Additional information: no recent UTI. frequency and urge slightly wors ening Follow Up of Chronic conditions Follow Up of Chronic conditions 1) Essential tremor (onset 07/06/2023; Worse. having more trouble with tremor, interested in trial of treatment) 2) Essential (primary) hypertension (onset 03/14/2022; Controlled. takes medication regularly, no headache, no chest pain, no shortness of breath, no palpitations, watching salt in diet, trying to exercise) 3) Other and unspecified hyperlipidemia (Controlled. taking statin regularly, tolerates it well, watches diet, adding fiber to diet) 4) Benign prostatic hyperplasia with lower urinary tract symptoms, symptom details unspecified (Controlled.) 5) Depression, major, recurrent, in partial remission (Controlled.) Pertinent negatives include fatigue, pain, weight gain and weight loss. Blood pressure classification is stage 1 hypertension. - 08/02/24 labs reviewed. medicare preventive [facility] 10-year Risk of Developing Hard CHD (Myocardial Infarction and Coronary ) is 20%. The ''Up and Go'' test took less than 30 seconds and the patient does not need help with activities of daily living.The patient is at risk for falls.The patient has not fallen in the last year. The patient has smoke detectors in the home. The patient does not have firearms, carbon monoxide detectors in the home. Patient reports using a seatbelt in vehicles. Relevant history is positive for alcohol use. Relevant history is negative for tobacco use. During the past 4 weeks, the patients' health in general has been very good. Things in the past 4 weeks have been going pretty good. In the past 4 weeks, the patient has never been bothered by falling or being dizzy when standing up. In the past 4 weeks, the patient has seldomly experienced sexual related problems. In the past 4 weeks, the patient has never had trouble eating well. In the past 4 weeks, the patient has never had problems with their teeth or dentures. In the past 4 weeks, the patient has never had problems using the telephone During the past 4 weeks, the patient has sometimes felt fatigued. The patient is somewhat confident that they can control and manage most of their health problems. The patient does not live alone. The patient is able to travel alone without help. The patient is able to shop for groceries without help. The patient is able to prepare their own meals. The patient is able to do housework without assistance. The patient is able to handle their own medication without help. During the past 4 weeks, the patient has been able to do very heavy physical activity for at least 2 minutes. Tinnitus The patient pres ents with high pitch Tinnitus in both ears that began 55 years ago. The symptoms are worsened, have been moderate and occur constantly. The symptoms are felt to be related to loud background noise. The patient reports no aggravating factors. The patient reports no relieving factors. The patient reports no ear pain, fullness in ear, headache, hearing loss, insomnia, vertigo or vision changes. Follow Up of Chronic conditions Follow Up of Chronic conditions 1) Essential (primary) hypertension (Controlled. takes medication regularly, no headache, no chest pain, no shortness of breath, no palpitations, watching salt in diet, trying to exercise) 2) Depression, major, recurrent, in partial remission (Controlled. taking medication regularly, mood is fairly well controlled, no suicidal thoughts, sleep is reasonable) 3) Other and unspecified hyperlipidemia (Controlled. taking statin regularly, tolerates it well, watches diet, adding fiber to diet) 4) Impaired fasting glucose (Stable. avoiding sugar, exercising regularly, watching carbohydrates, trying to maintain good weight; no polyuria, polydipsia or blurring of vision) 5) Benign prostatic hyperplasia with lower urinary tract symptoms, symptom details unspecified (Controlled. takes medication(s) regularly, 0-1 nocturia, no problem with stream) 6) Class 2 severe obesity with body mass index (BMI) of 35 to 39.9 with serious comorbidity (Stable. He has gained about 8 pounds in the past year. He is a little more sedentary, diet is a little more rich.) 7) Mild cognitive impairment (Stable. He has some mild distractibility. Difficulty with multitasking. He functions pretty well when he is organized. He has some mild hearing problems and tinnitus.) 8) Tremor of left hand (Stable. Stable, low-grade, not really needing any treatment.) 9) Benign head tremor (Stable. Stable, low-grade, not really needing any treatment. He did have exposure to toxins at the [place].) 10) Tinnitus, bilateral (Worse. His tinnitus is a little worse. His hearing loss might also be a little worse as well. This might kick in a little bit to the cognitive impairment discussed above. His last audiology testing was 2 years ago. This problem developed as he was in the [place] and did shooting without hearing protection.) Associated symptoms include weight gain. Blood pressure classification is stage 1 hypertension. -Jan 04 2024 labs reviewed. Elevated PSA The problem is c urrently stable. The patient's most recent PSA was 4 ng/mL, 21 % free taken on 08/04/2023. Pertinent history includes age over 50 and BPH. The patient does not report modifying factors such as medication or recent 5 SARMAD. Associated symptoms include nocturia , urinary urgency and frequent urination. Pertinent negatives include dysuria. Follow Up of Chronic conditions Medicare preventive [facility] 10-year Risk of Developing Hard CHD (Myocardial Infarction and Coronary ) is 20%. The ''Up and Go'' test took less than 30 seconds and the patient does not need help with activities of daily living.The patient is at risk for falls.The patient has not fallen in the last year. The patient has smoke detectors in the home. The patient does not have firearms, carbon monoxide detectors in the home. Patient reports using a seatbelt in vehicles. Relevant history is positive for alcohol use. Relevant history is negative for tobacco use. During the past 4 weeks, the patients' health in general has been very good. Things in the past 4 weeks have been going very well- could hardly be better. In the past 4 weeks, the patient has never been bothered by falling or being dizzy when standing up. In the past 4 weeks, the patient has sometimes experienced sexual related problems. In the past 4 weeks, the patient has never had trouble eating well. In the past 4 weeks, the patient has never had problems with their teeth or dentures. In the past 4 weeks, the patient has never had problems using the telephone During the past 4 weeks, the patient has sometimes felt fatigued. The patient is very confident that they can control and manage most of their health problems. The patient does not live alone. The patient is able to travel alone without help. The patient is able to shop for groceries without help. The patient is able to prepare their own meals. The patient is able to do housework without assistance. The patient is able to handle their own medication without help. Follow Up of Chronic conditions 1) Essential (primary) hypertension (Controlled. takes medication regularly, no headache, no chest pain, no shortness of breath, no palpitations, watching salt in diet, trying to exercise) 2) Depression, major, recurrent, in partial remission (Controlled. see geriatric depression scale, looking pretty good; taking medication regularly, mood is fairly well controlled, no suicidal thoughts, sleep is reasonable) 3) Benign head tremor (Stable. has mild head veda and some tremor of both upper extremities; was exposed to ground water at [place]; it's stable not major bother but monitoring) 4) Tremor of left hand (Stable. see head tremor) 5) Impaired fasting glucose (Controlled. avoiding sugar, exercising regularly, watching carbohydrates, trying to maintain good weight; no polyuria, polydipsia or blurring of vision) 6) Benign prostatic hyperplasia with lower urinary tract symptoms, symptom details unspecified (Controlled. takes medication(s) regularly, 0-1 nocturia, no problem with stream) 7) Vitamin D deficiency (Unknown. taking vitamin D but has not had level drawn in a while..) Associated symptoms include weight gain. Pertinent negatives include fatigue and pain. Blood pressure classification is stage 1 hypertension. >>>> 2022 labs reviewed. medicare preventive [facility] 10-year Risk of Developing Hard CHD (Myocardial Infarction and Coronary ) is 20%. Relevant history is positive for alcohol use. Relevant history is negative for tobacco use. During the past 4 weeks, the patients' health in general has been excellent. Things in the past 4 weeks have been going pretty good. In the past 4 weeks, the patient has never been bothered by falling or being dizzy when standing up. In the past 4 weeks, the patient has sometimes experienced sexual related problems. In the past 4 weeks, the patient has never had trouble eating well. In the past 4 weeks, the patient has never had problems with their teeth or dentures. In the past 4 weeks, the patient has never had problems using the telephone During the past 4 weeks, the patient has sometimes felt fatigued. The patient is somewhat confident that they can control and manage most of their health problems. The patient does not live alone. The patient is able to travel alone without help. The patient is able to shop for groceries without help. The patient is able to prepare their own meals. The patient is able to do housework without assistance. The patient is able to handle their own medication without help. Elevated PSA The problem is c urrently stable. The patient's most recent PSA was 3.9 ng/mL, 22 % free taken on 04/21/2022. Pertinent history includes age over 50 and BPH. Pertinent negatives include dysuria and urinary urgency. Follow Up of Chronic conditions 1) Essential (primary) hypertension (Controlled. takes medication regularly, no headache, no chest pain, no shortness of breath, no palpitations, watching salt in diet, trying to exercise) 2) Other and unspecified hyperlipidemia (Controlled. taking statin regularly, tolerates it well, watches diet, adding fiber to diet) 3) Vitamin D deficiency (Suboptimal Control. taking vitamin D mostly regularly; getting calcium from mix of supplement and diet; trying to get some weight bearing exercise) 4) Depression, major, single episode, in partial remission (Fair Control. having a lot of sleep trouble since doubling the fluoxetine; help is offset by the sleep trouble; interested in trying something else) 5) Erectile dysfunction, unspecified erectile dysfunction type (Controlled. uses medication for ED as needed, works well, no side effects or problems) 6) Benign prostatic hyperplasia with lower urinary tract symptoms, symptom details unspecified (Controlled. no major stream, flow problems, also followed by Dr. Young in urology, PSA looks stable today) Associated symptoms include weight loss. Pertinent negatives include fatigue and pain. Additional information: going [place] 2 weeks to [place] to [place] [employer] to meet with/serve [employer] [place] commemorating the anniversary of the miracle. Blood pressure classification is stage 1 hypertension. #### Labs from March 10, 2022 reviewed. Follow Up of Chronic conditions Follow Up of Diverticulosis [facility] noscopy with Dr. Waterman January 12, 2022. Personal history of colon polyps. Pathology demonstrates vegetable matter. He did have diverticulosis of the sigmoid and descending colon which was not mentioned on his prior colonoscopy.Is doing well after his colonoscopy. No abdominal pain, fevers, nausea, vomiting, hematochezia, or rectal bleeding. He takes Metamucil every other day, having normal bowel movements. ringing in ears The patient pres ents with high pitch ringing in ears in both ears that began 50 years ago. The symptoms are worsened, have been moderate and occur constantly. The symptoms are felt to be related to loud background noise. There is no history of noise exposure. The patient reports no aggravating factors. The patient reports no relieving factors. The patient reports no difficulty concentrating, dizziness, insomnia or vertigo. Follow Up of Chronic conditions Follow Up of Chronic conditions 1) Essential (primary) hypertension (Controlled. takes medication regularly, no headache, no chest pain, no shortness of breath, no palpitations, watching salt in diet, trying to exercise) 2) Other and unspecified hyperlipidemia (Well Controlled. LDL 60 taking statin regularly, tolerates it well, watches diet, adding fiber to diet) 3) Depression, major, single episode, in partial remission (Fair Control. see geriatric depression scale; taking 10 mg fluoxetine; not great in status at all.. compliant see all screeners below) 4) Tinnitus of both ears (Worse. Has had this for quite a while, had a recent episode exposure to a loud noise and the tinnitus got worse and he possibly has some worsening hearing loss. Its not severe and bothersome but moderately so.) 5) Benign prostatic hyperplasia with lower urinary tract symptoms, symptom details unspecified (Controlled. takes medication(s) regularly, 0-1 nocturia, no problem with stream) 6) Vitamin D deficiency (Fair Control. not very consistent with the vitamin D supplement..) Blood pressure classification is stage 1 hypertension. >> 12/03/2021 labs reviewed. Follow Up of Hypertension The HT N started in 2014. The severity has been described as being mild-moderate. It is currently getting worse. Risk factors include age over age 60, family history HTN, gout or CAD, male gender and obesity. Follow Up of Tinnitus The patien t presents with high pitch and humming Follow Up of Tinnitus in both ears that began 1 week ago. The symptoms are worsened, have been moderate and occur constantly. Aggravating symptoms include loud environments. The patient is also experiencing hearing loss. The patient reports no dizziness, fullness in ear or headache.Additional information:hx of tinnitus - (hx of /loud noises) - seen at [facility] in [place] nothing since. 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 No protection. Elevated PSA The onset was ap proximately 1 year ago. The problem has improved. The patient's most recent PSA was 3.6 ng/mL, 14 % free taken on 09/02/2021. Pertinent history includes age over 50 and BPH. The patient does not report modifying factors such as medication, instrumentation or recent 5 SARMAD. Pertinent negatives include dysuria and urinary urgency. Additional information: no recent UTI. medicare preventive [facility] 10-year Risk of Developing Hard CHD (Myocardial Infarction and Coronary ) is 25%. Recently, the patient has felt little interest or pleasure in doing things. Relevant history is positive for alcohol use. Relevant history is negative for tobacco use. During the past 4 weeks, the patients' health in general has been excellent. Things in the past 4 weeks have been going pretty good. In the past 4 weeks, the patient has never been bothered by falling or being dizzy when standing up. In the past 4 weeks, the patient has sometimes experienced sexual related problems. In the past 4 weeks, the patient has never had trouble eating well. In the past 4 weeks, the patient has never had problems with their teeth or dentures. In the past 4 weeks, the patient has never had problems using the telephone During the past 4 weeks, the patient has sometimes felt fatigued. The patient is very confident that they can control and manage most of their health problems. The patient does not live alone. The patient is able to travel alone without help. The patient is able to shop for groceries without help. The patient is able to prepare their own meals. The patient is able to do housework without assistance. The patient is able to handle their own medication without help. During the past 4 weeks, the patient has been able to do very heavy physical activity for at least 2 minutes. Follow Up of Chronic conditions 1) Benign prostatic hyperplasia with lower urinary tract symptoms, symptom details unspecified (Controlled. Currently using dietary modification. Followed by Dr. Young in urology. Recently taken off of tamsulosin. PSA status is up-to-date.) 2) Other and unspecified hyperlipidemia (Controlled. taking statin regularly, tolerates it well, watches diet, adding fiber to diet) 3) Depression, major, recurrent, moderate (Controlled. taking medication regularly, mood is fairly well controlled, no suicidal thoughts, sleep is reasonable) 4) Essential (primary) hypertension (Controlled. takes medication regularly, no headache, no chest pain, no shortness of breath, no palpitations, watching salt in diet, trying to exercise) 5) History of colon polyps (Stable. Patient is not sure the status but has been on every 5-year colonoscopy.) Pertinent negatives include fatigue, pain, weight gain and weight loss. Follow Up of Chronic conditions Sexual dysfunction Elevated PSA The onset was ap proximately 2 years ago. The problem is currently stable. Reviewed today was a PSA taken on 06/16/2020 with findings of 4.2 ng/mL,19.50%. Pertinent history includes age over 50 and BPH. The patient does not report modifying factors such as medication, instrumentation or recent 5 SARMAD. Associated symptoms include urinary incontinence (urgency), urinary urgency and frequent urination. Pertinent negatives include dysuria. Additional information: no recent UTI. cough Onset: 1 Month. Symptoms are associated with history of allergies and recent cold. Symptoms are not associated with history of asthma, sick family member and smoker. Aggravating factors include exertion and lying down. The denies relieving factors. Associated symptoms include cough (moist), nasal congestion, postnasal drainage and wheezing. Pertinent negatives include dyspnea, fever, headache or hemoptysis. Additional information: Negative COVID testing last week. Finished azithromycin without improvement. Cough (comments) Nasal congestio n, sore throat, fatigue, chills, KHOURY, body aches w/ cough x 2 wks. Cough mostly nonprod, occ prod in am's when awakens.Denies dyspnea.Admits to hx of seasonal allergies. Typically flare this time of yr. Has used Flonase couple of times since start of sx's, as well as Benadryl occ @ [facility].Pt also states he moved here 2 mos ago and has new [place] [facility] [place] Dr Powell in [place]. Is overdue for his PSA. Pt c/o increased urinary urgency since onset of above sx's. He correlates this to increased hydration. Denies dysuria, frequency or hematuria. Cough Onset: 2 Weeks. The severity of the problem is mild. The problem has not changed. The symptoms are persistent. Symptoms are associated with history of allergies. Symptoms are not associated with history of asthma, recent cold, recent travel and sick family member. The denies aggravating factors. Symptoms are relieved by antihistamines and honey. Associated symptoms include cough (non-productive), fatigue, headache, myalgia, nasal congestion and pharyngitis. Pertinent negatives include chills/rigors, dyspnea, fever, otalgia, postnasal drainage, sinus pressure or wheezing. Additional information: No loss of sense of taste or smell. COVID vax approx 2 mos ago. Functional Status Date Functional Assessmen t No Information Instructions Date Instruction Additional Infor gosia Weight-based diureti c management with goal of maintaining dry weight. Sodium restriction of less than 2 grams per day reinforced. Call office for weight gain refractory to titration of diuretics. Related to Chronic systolic (congestive) heart failure Some improvement on today's prelim echo report - official read pending. Continue with current GDMT. Related to Non-ischemic cardiomyopathy Cardiac rehab. Related to Ather osclerosis of [place] coronary artery of [place] heart without angina pectoris Continue with mone reyez medical therapy. Secondary prevention and risk reduction therapies discussed. Related to Atherosclerosis of [place] coronary artery of [place] heart without angina pectoris Will decrease Toprol to 12.5 mg daily. He is instructed to call office for any dizziness or near-syncope. Related to Typical atrial flutter Continue with curren dereje GDMT. He declines Lifevest. Will plan to repeat echo in 1 month after DCCV. Related to Nonischemic cardiomyopathy Weight-based diureti c management with goal of maintaining dry weight. Sodium restriction of less than 2 grams per day reinforced. Call office for weight gain refractory to titration of diuretics. Related to Chronic systolic (congestive) heart failure Dietary management e ducation, guidance, and counseling Related to Body mass index (BMI) 32.0-32.9, adult Dietary management e ducation, guidance, and counseling Related to Body mass index (BMI) 33.0-33.9, adult Dietary management e ducation, guidance, and counseling Related to Body mass index (BMI) 34.0-34.9, adult Dietary management e ducation, guidance, and counseling Related to Body mass index (BMI) 32.0-32.9, adult Health risk assessme nt data reported by patient (including demographics, self assessment of health status, psychosocial risks, behavioral risks, ADLs, Instrumental ADLs) reviewed and HRA scanned to chart. C ognitive function addressed.Medical and Family History reviewed and medications documented. D epression risk, fall risk, hearing impairment, home safety and ability to perform ADLs reviewedWritten screening schedule given to patient for age appropriate preventive services recommended f or the next 10 yrs. C ounseled regarding pts risk factors for various medical conditions and appropriate interventions. 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 Related to Histo ry of colon polyps followed by urology Related to B enign prostatic hyperplasia with lower urinary tract symptoms, symptom details unspecified requesting increase in setraline due to increase anxietySertraline 50mgs q daywill contact office when refill needed for higher dosage GOALS:Increase understanding of Depression and Anxiety feelingAddress issues underlying depressive feelingsParticipate actively in individual and group counselingCorrect irrational thinking which leads to depressionaddress issues of dependence, helplessness, and hopelessnessDecrease extreme symptoms of depression through improved copingENCOURAGE:Identify and treat triggers such as social situations and stressors. Formulate a plan for self-management/mantra. Keep log or diary of symptoms and situationRegular exercise and balanced diet for improvement of symptoms and energy. Avoid ETOH and caffeineDiscuss good sleep hygieneCall office or ED if symptoms worsen acutely. Especially if SI/HI. Related to Major depressive disorder, recurrent, moderate on atorvastatindoing welllabs reviewed PLEASE AVOID RED MEAT ( ANYTHING THAT COMES FROM A COW OR A PIG: BEEF, BURGERS, HAM, JIMÉNEZ, PORT, SAUSAGE, COLD CUTS, ETCFISH, TURKEY, CHICKEN ARE OK).PLEASE EXERCISE DAILYEAT MORE FISH, WALNUTS, OMEGA -3 FATTY ACIDS. Related to Other and unspecified hyperlipidemia well controlledon pablo sinoprilstablelabs reviewed Recommended weight loss as patient's primary strategy to normalize blood sugars. Reviewed medical management of diabetes including ACEI/ARB inhibitor therapy to protect kidneys, statin therapy to control atherosclerosis, aspirin therapy for stroke / heart attack prevention, and medications to control high glucose.Discussed preventive strategies such as foot care and Pneumovax and Flu vaccine. Advised periodic check ups by an eye doctor for early detection of damage to the retina. Advised patient about need for periodic monitoring of their hemoglobin A1c values, kidney function, close monitoring of feet. and control of blood pressure. Urged compliance with all aspects of Diabetes management - diet, activity, checking their blood sugars, checking feet daily, and medications. Discussed complications associated with uncontrolled Diabetes - increased risk of stroke, [place], poor wound healing, diabetic retinopathy and nephropathy. Monitor for complications. Related to Essential (primary) hypertension -Try to add 3-4 days a week of exercise both cardiovascular-Recommended changes to help lower your glucose levels include substituting whole grains for processed products that contain white flour; increasing your intake of vegetables, fruits, poultry, fish and beans; and restricting your intake of sugar and other sweeteners such as molasses and honey.-Reduction of simple carbohydrates white - potatoes, rice, pasta; sugary drinks, high sugary fats & sweets. Related to Class 1 obesity due to excess calories with serious comorbidity and body mass index (BMI) of 31.0 to 31.9 in adult Dietary management e ducation, guidance, and counseling Related to Body mass index (BMI) 31.0-31.9, adult Screening colonoscop y in 5 years.Recommendation for lifestyle modifications associated with reduced risk for colon cancer include regular physical activity, high fiber diet-high in fruits and vegetables, reduced consumption of red meat and processed meat, limit alcohol intake, avoid smoking, and maintain a healthy weight. Related to History of colon polyps Continue Metamucil r egimen, can take daily if needed. High-fiber diet. Increase water intake. Related to Diverticulosis discussed needing to protect hearing during concertsreferral to ENT/[employer] Officer Related to Tinnitus of both ears BP well controlled o n Lisinopril 10mgs q daydiscussed having (PORTABLE SAWMILL OPERATOR) manually check BP 2 times a week to keep eyeor get arm BP cuffif starts to increase contact - for BID directions Related to Essential (primary) hypertension Dietary management e ducation, guidance, and counseling Related to Body mass index (BMI) 32.0-32.9, adult stablemonitor Related to Gambier guevara prostate specific antigen [PSA] reviewed labs with p atient - post visit by phone/electronically if availablereviewed overall medical status including other providers, health maintenance issues; needs going forwardhad screen for depression done today (see under exam/intake)reviewed adequate sleep, regular exercise, sun protection, healthy diet; WENDI, prostate health see updated care guidelines in this document; reviewed those with patient today as part of visit Related to Encntr for general adult medical exam w/o abnormal findings check labs Related to Vitam in D deficiency uncontrolledreports tried on multiple medsfollowed by urology in the past Related to Benign prostatic hyperplasia with lower urinary tract symptoms, symptom details unspecified stableon fluoxetinew as placed on it prior by PCP due to increase depression with COVID GOALS:Increase understanding of Depression and Anxiety feelingAddress issues underlying depressive feelingsParticipate actively in individual and group counselingCorrect irrational thinking which leads to depressionaddress issues of dependence, helplessness, and hopelessnessDecrease extreme symptoms of depression through improved copingENCOURAGE:Identify and treat triggers such as social situations and stressors. Formulate a plan for self-management/mantra. Keep log or diary of symptoms and situationRegular exercise and balanced diet for improvement of symptoms and energy. Avoid ETOH and caffeineDiscuss good sleep hygieneCall office or ED if symptoms worsen acutely. Especially if SI/HI. Related to Depression, major, recurrent, moderate -Try to add 3-4 days a week of exercise both cardiovascular-Recommended changes to help lower your glucose levels include substituting whole grains for processed products that contain white flour; increasing your intake of vegetables, fruits, poultry, fish and beans; and restricting your intake of sugar and other sweeteners such as molasses and honey.-Reduction of simple carbohydrates white - potatoes, rice, pasta; sugary drinks, high sugary fats & sweets. Related to Class 1 obesity due to excess calories with serious comorbidity and body mass index (BMI) of 32.0 to 32.9 in adult requesting Cialis rx Related to Erectile dysfunction, unspecified erectile dysfunction type well controlledon li sinopril -Maintain a low-sodium diet (less than 2 grams per day). Maintain a regular cardiovascular exercise program.-Counseled on reducing risk factors to reduce chance of heart attack/stroke. -Counseled regarding importance of weight loss. -D.A.S.H. diet recommended. Related to Essential (primary) hypertension stablereviewed labso n atorvastatin PLEASE AVOID RED MEAT ( ANYTHING THAT COMES FROM A COW OR A PIG: BEEF, BURGERS, HAM, JIMÉNEZ, PORT, SAUSAGE, COLD CUTS, ETCFISH, TURKEY, CHICKEN ARE OK).PLEASE EXERCISE DAILYEAT MORE FISH, WALNUTS, OMEGA -3 FATTY ACIDS. Related to Other and unspecified hyperlipidemia referral for colonos copyPatient is oriented to new clinic, practice.Chart updated, old records requested based on need for information.Contact processes reviewed, encouraged to join patient portal.Walk In care options reviewed.Patient is fully vaccinated for COVID-19. educated. Related to History of colon polyps Continue medication for mood, compliance coaching. Consider for counseling, can facilitate if needed. Call or return promptly for worsening or change in mood or suicidal ideation. Related to Depression, major, recurrent, moderate get enough sleep; wa tch salt; regular exercise; take medication daily, healthy low fat diet Related to Essential (primary) hypertension continue present med ication(s) for the prostateproper dosing reviewed where indicatedavoid caffeine, sodas, and other bladder irritantsdon't drink fluids after 6pm to reduce nocturiacall or return if stream changes or develops worse or new symptoms Related to Benign prostatic hyperplasia with lower urinary tract symptoms, symptom details unspecified Statin is for preven tion of stroke and heart attack, daily compliance for best prevention value is important.Continue current lipid agent(s). Reduce fats in diet. Increase fiber in diet (Metamucil used as directed lowers lipids by 30-40%). Lose weight. Reduce carbohydrate intake. Increase exercise. Related to Other and unspecified hyperlipidemia Continue Flonase Beg in Claritin, Zyrtec or Giselle once daily Related to Seasonal allergies UA collection today to rule out UTI as cause of new symptoms, though likely correlates to increased fluid intake Related to Urinary urgency COVID testing todayM ucinex DM or Robitussin DM as needed for coughQuarantine at home until notified of COVID results Related to Cough Assessments Type Assessment Date No Information Patient Care Teams Name Effective Dates (start - stop) Status Members No Information
--- OUTSIDE RECORDS SUMMARY | 2025-05-22 09:30 | XMS_ITS | Encounter Summary ---
Author Organization [facility] Address [address] [facility] [place] [address] Care Team Providers Care Cabbage Salter Name Role Phone Raj Powell MD Primary Care Provider + [phone] Stacie Daomn RN Unavailable Unav ailable Joe Fletcher RN Unavailable Unavailabl e Reason for Visit * Continual Care for Specialist (Routine) - Authorized Specialty Diagnoses / Procedures Referred By Contact Referred To Contact Cardiac Rehabilitation Diagnoses CHF (congestive heart failure) (*) Heart failure Procedures CONSULT/REFERRAL TO CARDIOPULMONARY REHAB PROGRAM [address] Clovis Eduardo MD [address] [place] [address] [place] [address] Phone: tel:[phone] fax: Counts Include [facility] [address] [address] Phone: tel: fax: Referral ID Status Reason Start Date Expiration Date V isits Requested Visits Authorized [id number] Authorized 04/18/2025 02/21/2026 36 36 Encounter Details Date Type Department Care Team (Late st Contact Info) Description 05/22/2025 9:30 AM EDT - 05/22/2025 11:59 PM EDT Hospital Encounter Counts Include [facility] [address] [address] Cliff Mondragon MD [address] [place] [address] Discharge Disposition: Home or Self Care Social History Tobacco Use Types Packs/Day Years Used Date Smoking Tobacco: Never Smokeless Tobacco: Never Alcohol Use Standard Drinks/Week Comments Yes 0 (1 standard drink = 0.6 oz pur e alcohol) socially [facility] Utilities Answer Date Recorded In the past 12 months has th e electric, gas, oil, or water company threatened to shut off services in your home? No 02/21/2025 AUDIT-C Answer Date Recorded Q1: How often do you have a drink containing alc ohol? 2-4 times a month 02/21/2025 Q2: How many drinks containi ng alcohol do you have on a typical day when you are drinking? 1 or 2 02/21/2025 Q3: How often do you have si x or more drinks on one occasion? Never 02/21/2025 [facility] - Occupational Stress Questionnaire Answer Date Recorded Do you feel stress - tense, restless, nervous, or anxious, or unable to sleep at night because your mind is troubled all the time - these days? To some extent 02/21/2025 Hunger Vital Sign Answer Date Recorded Within the past 12 months, y ou worried that your food would run out before you got the money to buy more. Never true 02/22/20 25 Within the past 12 months, t he food you bought just didn't last and you didn't have money to get more. Never true 02/21/2025 PRAPARE - Transportation Answer Date Re corded In the past 12 months, has l ack of transportation kept you from medical appointments or from getting medications? No 09/2024 In the past 12 months, has l ack of transportation kept you from meetings, work, or from getting things needed for daily living? No 02/26/2025 Housing Stability Vital Sign Answer Margarito e Recorded In the last 12 months, was t here a time when you were not able to pay the mortgage or rent on time? No 02/21/2025 In the past 12 months, how m any times have you moved where you were living? 0 02/21/2025 At any time in the past 12 m [facility], were you homeless or living in a [place] [facility] [place] (including now)? No 02/21/2025 HITS Answer Date Recorded Over the last 12 months how often did your partner physically hurt you? Never 02/20/2025 Over the last 12 months how often did your partner insult you or talk down to you? Never 02/20/2025 Over the last 12 months how often did your partner threaten you with physical harm? Never 02/20/2025 Over the last 12 months how often did your partner scream or curse at you? Never 02/20/2025 Sex and Gender Information Value Date Recorded Sex Assigned at Not on file Legal Sex Male 12:07 PM EDT Gender Identity Not on file Sexual Orientation Not on file documented as of this encounter Medications at Time of Discharge apixaban (ELIQUIS) 5 mg tabletIndications:A trial Fibrillation Take one tablet (5 mg dose) by mouth 2 (two) times daily. 60 tablet 11 02/27/2025 atorvastatin calcium (LIPITOR) 10 mg tablet Take one tablet (10 mg dose) by mouth daily. CYANOCOBALAMIN PO Take 1 each by mouth daily. (Gummies) dapagliflozin (FARXIGA) 10 mg tablet Take one tablet (10 mg dose) by mouth daily. 30 tablet 11 02/28/2025 lisinopril (PRINIVIL,ZESTRIL) 5 mg tablet Take one tablet (5 mg dose) by mouth daily. 30 tablet 02/28/2025 metoprolol succinate (TOPROL XL) 25 mg 24 hr tablet Take one tablet (25 mg dose) by mouth daily. 30 tablet 02/27/2025 sertraline (ZOLOFT) 50 mg tablet Take one tablet (50 mg dose) by mouth daily. spironolactone (ALDACTONE) 25 mg tablet Take one half tablet (12.5 mg dose) by mouth daily. 30 tablet 02/28/2025 documented as of this encounter Progress Notes * Janine Acuna RN - 05/22/2025 9:30 AM EDT [facility] [place] [address] Dept: [phone] Dept INDIVIDUAL CARDIOPULMONARY REHABILITATION TREATMENT PLAN 30 Day Re-Evaluation - 05/22/2025 Patient: Checo Cortes Service Start Date: 04/23/25 MR Number: [id number] Program Attendance: > 75% Date of : 1950 Referral Diagnosis: CHF 02/27/25 Age/Sex: 74 y.o./male GOLD Stage Risk Stratification: High Early DC Reason: Tobacco Use History[1] Social History Substance and Sexual Activity Alcohol Use Yes Comment: socially Current Preventative Meds: ZAY Inhibitor/ARBs; Statin/Lipid Lowering; Other (comment) (Eliquis, Farxiga, and aldactone) Medication Changes: Compliant with medications? Yes Stages of Change: Action Assistive devices: None Non-modifiable risk factors: Age; Gender; Family history Physical limitations: No Modifiable risk factors: Hypertension; Dyslipidemia; Weight Vocational rehab needed? No CLINICAL EVALUATION VITAL SIGNS INITIAL EVAL 30 DAY RE-EVAL Assessment Type -- (Will assess at first session) Resting Blood Pressure 138/80 Heart Rate 64 SpO2% O2 LPM O2 type CARDIAC ASSESSMENT INITIAL EVAL 30 DAY RE-EVAL Angina present? No No Arrhythmia present? Yes No EKG rhythm Normal sinus rhythm (per last EKG: premature supraventricular complexes, first degree AVB, RBBB, and left anterior fasicular block.) Normal sinus rhythm (SR with PACs, PVCs, known 1st degree AVB, RBBB, LAFB) Hypertension status Controlled Uncontrolled (Resting BP at rehab has ranged into 130s) Monitors BP at home? Yes Yes Claudication present? No No Edema present? No No RESPIRATORY ASSESSMENT INITIAL EVAL 30 DAY RE-EVAL Dyspnea Status None None MMRC Dyspnea Scale Home O2 Use? None O2 lpm Exercise O2 lpm Sleep O2 lpm Correct use of supplemental O2? N/A Is supp O2 needed with exercise? No Spirometry Performed? FEV1 N/A FVC N/A FEV1/FVC N/A DLCO N/A Prior Sleep Study? N/A Diagnosis of Sleep Apnea? No PETER Device Oxygen Goals N/A N/A Oxygen Plan/Interventions Progressing Towards Oxygen Goals? Yes Oxygen Progress Note: DIABETES INITIAL EVAL 30 DAY RE-EVAL Diabetes Present? No No Controlled By Patient Reported FBS Patient Reported Non-fasting BS FBS in Range? Monitors Blood Sugar at Home? No Home Monitoring Frequency LAB RESULTS INITIAL EVAL Lipid Panel Date -- (No recent labs available) Total Cholesterol HDL LDL Triglycerides HgbA1C Date -- (No recent labs available) HgbA1C FALL RISK INITIAL EVAL 30 DAY RE-EVAL History of Falling? (0=No; 25=Yes) 0 0 Constantino Fall Risk Score 15 15 EXERCISE CURRENT HOME EXERCISE INITIAL EVAL 30 DAY RE-EVAL Current Home Exercise? Yes Yes Mode of Exercise Treadmill Treadmill Exercise Frequency (days/week) 3 3 Duration per Session (min) 20 20 Resistance Training? Yes Yes Type of Resistance Dumbbells Dumbbells Bands/Tubes Level w/ Sets/Reps Dumbbell Weight w/ Sets/Reps 8-10 Reps 10 lbs, 2-3 Sets; 8-10 Reps; 12-15 Reps Machine Weight w/ Sets/Reps HOME EXERCISE RX INITIAL EVAL 30 DAY RE-EVAL Home Exercise Rx -- (Will determine at first session) Yes Mode of Exercise Treadmill Exercise Frequency (days/week) 3 Duration per Session (min) 20 Resistance Training? Yes Type of Resistance Dumbbells Bands/Tubes Level w/ Sets/Reps Dumbbell Weight w/ Sets/Reps 10 lbs, 2-3 Sets; 8-10 Reps; 12-15 Reps Machine Weights Sets/Reps Home HR Range 93-128 Home METS SIX MINUTE WALK/CYCLE TEST INITIAL EVAL Test Method -- (Did not perform at this time) Assistive Device Used Distance Completed Resting HR Resting BP Resting EKG Resting SpO2% Resting O2 LPM 3 Minute HR 3 Minute SpO2% 3 Minute RPE 3 Minute RPD Peak HR Peak BP Peak EKG Peak SpO2% Peak RPE Peak Beverley RPD Scale Recovery HR Recovery BP Recovery EKG Stopped or Paused Prior to Completion? Estimated METs Test Comments STRENGTH TESTING INITIAL EVAL R 30-sec Arm Curl Reps -- (Did not perform at this time) L 30-sec Arm Curl Reps 30-sec Sit to Stand Reps R Hand Field Contact Technician L Hand Field Contact Technician EXERCISE PRESCRIPTION INITIAL EVAL 30 DAY RE-EVAL Recommended Number of Sessions 24 24 Mode of Exercise NuStep; Recumbent Bike Track; Treadmill; Upright Bike Exercise Frequency (days/week) 2 days/wk at rehab 2 days/wk at rehab; 2-3 at home Duration Per Session (min) 60 45 Intensity Moderate Moderate Target HR Range Rest + 20-30bpm 93-128 Target RPD 0-4 0-4 Include Resistance Training? Yes Yes Type of Resistance Training Dumbbells Dumbbells Bands/Tubes Level w/ Sets/Reps Dumbbell Weight w/ Sets/Reps 8-10 Reps 8 lbs, 2-3 Sets; 8-10 Reps; 12-15 Reps Machine Sets/Reps Maximum METs 4.89 Training METs 3.17 Progression Increased duration and/or intensity of exercise when steady state has occurred in patient specific target O2%, target HR, RPE and RPD without untoward events Increased duration and/or intensity of exercise when steady state has occurred in patient specific target O2%, target HR, RPE andRPD without untoward events Exercise Prescription Comments Exercise Goals Blood Pressure within specified parameters; Improved activity tolerance/functional capacity; Demonstrates ability to self-monitor heart rate Blood Pressure within specified parameters;Improved activity tolerance/functional capacity; Demonstrates ability to self-monitor heart rate Progressing Towards Exercise Goal? Yes Yes Exercise Progress Note: Patient will attend group sessions and education Pt continues to increase his intensities and add new modalities, as tolerated. Pt will continue to attend group education classes. Exercise Interventions: Functional Status Assessment, Vital Signs Assessment, Cardiac Assessment. Information provided to patient on: Self monitoring heart rate Blood pressure goals Exercise safety Equipment orientation Warm up/ cool down RPE/RPD scales PAD scale (if indicated) Angina scale General pain scale Aerobic training exercise program Resistance training exercise program NUTRITION WEIGHT MANAGEMENT INITIAL EVAL 30 DAY RE-EVAL Weight 231 lb (104.8 kg) 237 lb (107.5 kg) Height 6' 1 (1.854 m) 6' 1 (1.854 m) BMI 30.5 31.3 Waist Circumference (in) N/A Weight Status Obese (BMI more than 30) Obese (BMI more than 30) Weight Goal 10 lb weight loss in CR. 10 lb weight loss in CR. Goal Progress Yes Yes NUTRITIONAL STATUS INITIAL EVAL 30 DAY RE-EVAL Nutrition Plan Cardiac Cardiac Picture Your Plate Score N/A Picture Your Plate Interpretation N/A Rate Your Plate Score N/A Rate Your Plate Interpretation N/A Other Assessment Tool Nutrition Readiness Score=29. A score greater than 22 likely indicates a healthy dietary pattern, although there may still be specific behaviors to improve N/A Nutrition Goals Adherence to nutrition care plan; Pt will progress towards BMI <25, waist circ <40 in males/ <35 in females; Body weight within specified parameters; HbA1C <7%; Knowledge of nutritional requirements Adherence to nutrition care plan; Pt will progress towards BMI <25, waist circ <40 in males/ <35 in females; Body weight within specified parameters; HbA1C <7%;Knowledge of nutritional requirements Recommended Dietary Goals Eat 3 balanced meals and 1-2 healthy snacks per day; Choose lean protein sources; Increase total vegetable and fruit intake; Limit/avoid processed meats; Limit/avoid fried foods; Drink enough water daily to support adequate hydration; Limit sodium to no more than 2000mg per day; Plan meals to contain a protein, vegetable, and healthy starch Eat 3 balanced meals and 1-2 healthy snacks per day; Choose lean protein sources; Increase total vegetable and fruit intake; Limit/avoid processed meats; Limit/avoid fried foods; Drink enough water daily to support adequate hydration; Limit sodium to no more than 2000mg per day; Plan meals to contain a protein, vegetable, and hea lthy starch Progressing Toward Nutrition Goal? Yes Yes Nutrition Progress Note: Patient reports he limits his salt intake and eats foods such as hot cereal, blueberries, nuts, and fish. He is not interested in meeting with RD at this time. Pt states thathe is following a low sodium diet. He is choosing lean sources of protein, and incorporating a mixture of different vegetables with his meals. He is not interested in meeting with the RD at this time. Pt continue to attend group educaiton classes. Nutrition Interventions: Nutrition Compliance Assessment Alcohol Use Assessment Blood Glucose Monitoring/Glycemic Control (if indicated) Body Weight/BMI Assessment and Monitoring Lipid Nutrition Management Monitoring Heart Failure Nutrition Management (if indicated) Cancer Nutrition Management (if indicated) Registered Dietitian provides Nutrition Education (classes/handouts) to Patient/Caregiver EDUCATION EDUCATIONAL STATUS INITIAL EVAL 30 DAY RE-EVAL Knowledge Test Score N/A Education Score Interpretation N/A Understanding of Rehab Plan Yes Yes Patient Stated Rehab Goals 1. Lose wt 2. Learn about proper diet 3. Manage stress 4. Fast track? 1.Lose wt 2. Learn about proper diet 3. Manage stress 4. Fast track? Patient Stated Goals Updates/Comments Patient states he feels like he has made long strides toward his above goals. Although he has yet to see much change in his weight, he has made several diet changes to be more in line with a heart healthy diet, and he shares that he feels like they are sustainable. He also shares attending the Anxiety- What If? class with the rn social work and having his house sold has drastically helped his stress management. Education Goals Compliance with self-management plan; Knowledge of CAD and cardiovascular risk factors; Knowledge of self-management plan Compliance with self-management plan; Knowledge of CAD and cardiovascular risk factors; Knowledge of self-management plan Progressing Towards Education Goals? Yes Yes Education Progress Note: Patient will continue to attend group sessions and education Patient will continue attending group sessions and receiving educational materials. Education Interventions: Knowledge/Learning Needs Assessment, Therapeutic Regimen Compliance Assessment, Tobacco Use Assessment, Smoking Cessation Counseling (if indicated). Information provided to the patient on: ADL promotion/retraining Dangers of smoking (if indicated) Disease process/management Risk factors Medication management/compliance Sexuality and heart disease (if indicated) LEARNING ASSESSMENT Primary Learner Co-Learner(s) Primary learner name: Florencio Relationship: Patient Barriers: None Preferred language: [place] Proof Sorter required: No Preferred method: Verbal No data recorded Additional information: No data recorded EDUCATION LOG EXERCISE NUTRITION EDUCATION PSYCHOSOCIAL PSYCHOSOCIAL PSYCHOSOCIAL STATUS INITIAL EVAL 30 DAY RE-EVAL Patient Stress Factors None identified N/A Support System Spouse/Significant Other Spouse/Significant Other; Friend Impact on Rehab Course None - patient shows good coping methods None - patient shows good coping methods Psychosocial Goals Able to achieve higher levels of psychosocial functioning; Improved health-related quality of life; Improved levels of coping with psychosocial distress; Improved psychosocial adjustments to diagnosis Able to achieve higher levels of psychosocial functioning; Improved health-related quality of life; Improved levels of coping with psychosocial distress; Improved psychosocial adjustments to diagnosis Progressing towards Psychosocial goals? Yes Yes Psychosocial Interventions None - patient shows good coping methods; Offered counseling session, patient declined None - patient shows good coping methods; Offered counseling session, patient declined; Patient on psychotropic medications; Provide information related to depression signs/symptoms, positive coping methods, relaxation techniques, and stress management. Psychosocial Progress Note: Patient endorses stress related to selling his home. He has had his home on the market for 4 months and is concerned that he is having so much trouble selling it. He feelswell supported by his Fani who is a retired RN. He would like to move to [place] to be closer to his grandchildren. He enjoys walking his dog and spending time with his family. He is interested meeting with stress management but would like to start the program first. Patient shares that his stress levels have been very high the past few months while he and his have been trying to sell their home. They finally have a entry level buyer, and he is preparing to relocate to [facility]. He is very excitesd to be close to family again. He shares that from a health standpoint, he feels great. He feels stronger and notices improved energy levels. He has not had any recurrence of A Flutter and is eager to see his casing tester once more before moving. He enjoyed attending the stress management classes and shares that he has started utilizing some techniques communicated. Declines furtherneed for support and is compliant with medications. Psychosocial/ Rack Cleaner Progress Note: PSYCHOSOCIAL ASSESSMENT TOOLS INITIAL EVAL Eladio QOL Eladio Interpretation Eladio Health/Functioning Eladio Social/Economic Eladio Psychological/Spiritual Eladio Family PHQ-9 Depression Screening 2 (PHQ-8) PHQ-9 Interpretation Minimal Depression (1-4): Their score indicates presence of minimal depressivesymptoms. CAT Assessment Tool CAT Interpretation Psychosocial Assessment Interpretation: Patient scores for each dimension are as follows: MOBILITY 1 SELF-CARE 1 USUAL ACTIVITY 1 PAIN/DISCOMFORT 1 ANXIETY/DEPRESSION 2. (LEVEL 1: indicating no problem LEVEL 2: indicating slight problems LEVEL 3: indicating moderate problems LEVEL 4: indicating severe problems LEVEL 5: indicating unable t o/extreme) Patient perceived their current state of health as a 90 on a scale of 0 to 100. [1] Social History Tobacco Use Smoking Status Never Smokeless Tobacco Never Cosigned by Cliff Mondragon MD at 05/22/2025 8:36 AM EDT documented in this encounter Plan of Treatment Upcoming Encounters Date Type Department Care Team (Late st Contact Info) Description 05/29/2025 9:30 AM EDT Appointment [facility] [address] [place] [address] Cliff Mondragon MD [address] [place] [address] 06/03/2025 9:30 AM EDT Appointment [facility] [address] [place] [address] Cliff Mondragon MD [address] [place] [address] 06/05/2025 9:30 AM EDT Appointment [facility] [address] [place] [address] Cliff Mondragon MD [address] [place] [address] 06/10/2025 9:30 AM EDT Appointment [facility] [place] [address] [place] [address] Cliff Mondragon MD [address] [place] [address] 06/12/2025 9:30 AM EDT Appointment [facility] [place] [address] [place] [address] Cliff Mondragon MD [address] [place] [phone] 06/17/2025 9:30 AM EDT Appointment [facility] [place] [address] [place] [address] Cliff Mondragon MD [address] [place] [phone] 2025 9:30 AM EDT Appointment [facility] [place] [address] [place] [address] Cliff Mondragon MD [address] [place] [address] 06/24/2025 9:30 AM EDT Appointment [facility] [address] [place] [address] Cliff Mondragon MD [address] [place] [address] 06/26/2025 9:30 AM EDT Appointment [facility] [address] [place] [address] Cliff Mondragon MD [address] [place] [address] 07/01/2025 9:30 AM EST Appointment [facility] [place] [address] [place] [address] Cliff Mondragon MD [address] [place] [address] 07/03/2025 9:30 AM EST Appointment [facility] [place] [address] [place] [address] Cliff Mondragon MD [address] [place] [address] 07/08/2025 9:30 AM EST Appointment [facility] [place] [address] [place] [address] Cliff Mondragon MD [address] [place] [address] 07/10/2025 9:30 AM EST Appointment [facility] [place] [address] [place] [address] Cliff Mondragon MD [address] [place] [address] 07/15/2025 9:30 AM EST Appointment [facility] [address] [place] [address] Cliff Mondragon MD [address] [place] [address] 07/17/2025 9:30 AM EST Appointment Counts Include [facility] [place] [address] [place] [address] Cliff Mondragon MD [address] [place] [address] documented as of this encounter Visit Diagnoses Not on filedocumented in this encounter Care Teams Cabbage Salter Relationship Specialty Start Date End Date Raj Powell MD PCP - General Family Medicine 02/20/25 Stacie Damon, application penetration tester 02/22/25 Joe Fletcher, application penetration tester 02/22/25 documented as of this encounter
[2025-05-28] VITALS (23 sets, daily range): BP systolic 108–153; BP diastolic 24–127; PULSE 70–138; RESP 14–29; TEMP 36.4–38.7; O2SAT 90–100; BMI 30.9
--- NOTE | 2025-05-28 | ECG_ITS ---
Test Reason : ELEVATED HR Blood Pressure : */* mmHG Vent. Rate : 123 BPM Atrial Rate : * BPM P-R Int : * ms QRS Dur : 154 ms QT Int : 352 ms P-R-T Axes : * -86 36 degrees QTcB Int : 503 ms Atrial fibrillation with rapid ventricular response with premature ventricular or aberrantly conducted complexes Right bundle branch block Left anterior fascicular block Bifascicular block Abnormal ECG When compared with ECG of 28-May-2025 14:14, No significant changes seen Referred By: Generic ED Physician Electronically Signed By: NAYAN LEROY
--- NOTE | 2025-05-28 | ECG_ITS ---
Test Reason : AFIB Blood Pressure : */* mmHG Vent. Rate : 83 BPM Atrial Rate : 83 BPM P-R Int : 192 ms QRS Dur : 168 ms QT Int : 394 ms P-R-T Axes : 58 -64 3 degrees QTcB Int : 462 ms Normal sinus rhythm Left axis deviation Right bundle branch block Abnormal ECG When compared with ECG of 28-May-2025 19:34, Sinus rhythm has replaced Atrial fibrillation Referred By: Cristel Moya Electronically Signed By: NAYAN LEROY
--- NOTE | ~2025-05-28 | CT_ITS ---
CLINICAL HISTORY: SOB,fever,intractable cough ?PNA CT chest without contrast Comparison: None provided Findings: Atherosclerotic coronary vascular calcifications are present. 1.7 cm low-density left thyroid cyst or nodules noted. Patchy consolidations or infiltrates are present within bilateral lower lobes associated with moderate bronchial wall thickening The visualized upper abdomen is unremarkable. No acute fractures. IMPRESSION: Bilateral lower lobe consolidations or infiltrates. This document has been electronically signed by: Jacinto Lima MD, PHD on 05/29/2025 00:38:23
--- NOTE | ~2025-05-28 | XR_ITS ---
CLINICAL HISTORY: sob 2 view chest x-ray Comparison: None provided Findings: Portions of the exam are obscured by overlying material. The lungs are clear. Normal size heart. No acute fracture. IMPRESSION: 1. No acute findings. This document has been electronically signed by: Elpidio Chris MD on 05/28/2025 18:25:02
--- NOTE | 2025-05-28 12:26 | ED.GENADULT ---
HPI - General Adult General Chief complaint: Upper Respiratory Symptoms Stated complaint: pneumonia- sent by UC Time Seen by Provider: 05/28/25 14:53 Source: patient Mode of arrival: ambulatory Limitations: no limitations History of Present Illness ED Provider: Dr. Schreiber HPI narrative: This is a 74-year-old male history of atrial flutter, nonischemic cardiomyopathy presented hospital today for evaluation of persistent cough for the past 10 days. Patient stated that he was recently admitted to hospital in [place] where he was diagnosed with atrial flutter, nonischemic cardiomyopathy he has a negative heart catheterization. Patient was prescribed medicines such as spironolactone, lisinopril for his cardiomyopathy. He was placed on Eliquis then. Patient is now up here looking for a house. Patient has been developing cough for the past 10 days status productive in nature. He is also complaining some nasal congestion with this. He states he does feel slightly warm. He does have history of pneumonia in the past. No increased leg swelling on exam no chest pain. No signs of shortness of breath on exertion. Related Data Home Medications ?Medication ?Instructions ?Recorded ?Confirmed apixaban 5 mg tablet (Eliquis) 5 mg PO BID 05/29/25 05/29/25 atorvastatin 10 mg tablet 10 mg PO DAILY 05/29/25 05/29/25 dapagliflozin propanediol 10 mg 10 mg PO DAILY 05/29/25 05/29/25 tablet (Farxiga) lisinopril 10 mg tablet 10 mg PO DAILY 05/29/25 05/29/25 spironolactone 25 mg tablet 12.5 mg PO DAILY 05/29/25 05/29/25 venlafaxine 75 mg capsule,extended 150 mg PO DAILY 05/29/25 05/29/25 release 24 hr Allergies Allergy/AdvReac Type Severity Reaction Status Date / Time No Known Allergies Allergy Verified 05/28/25 12:33 Review of Systems Review of Systems: Pertinent review of systems as mentioned in [facility]. All other system otherwise negative. [facility] Past Medical History [facility] Narrative: Medical history as mentioned in [facility] Medical History (Updated 05/28/25 @ 23:22 by Cristel Moya MD) Nonischemic cardiomyopathy Pulmonary hypertension Right bundle branch block Thyroid nodule Hyperlipidemia Depression Heart failure with reduced ejection fraction History of cardioversion Atrial flutter Social History Social History Alcohol intake: current Alcohol intake frequency: holidays/special occasions only Smoked in Last 30 Days: No Use of substances other than those prescribed or required for medical reasons: No Advance Directives: No Advance Directives Information Provided: No Do you have a plan to hurt others: No Plan Physical Exam ED Exam Exam: General: Pleasant, no distress, interacting appropriately Head: Normacephalic, atraumatic ENT: oral mucosa moist, neck supple, no tracheal deviation Cardiovascular: regular rate, irregular rhythm, no murmurs, rubbing, gallops Respiratory: Diminished lung sounds on the left side, bibasilar crackles bilateral Gastrointestinal: Soft, non distended, non tender, non guarding Extremities: No limb pain or swelling, no calf tenderness Neurological: Awake and alert, no facial droop noted Skin: Warm and dry Psychiatric: Appropriate mood and thoughts Vital Signs: Vital Signs - 24 hr 05/28/25 12:26 05/28/25 14:45 05/28/25 14:45 Temperature 97.5 F 97.5 F Pulse Rate 79 79 Respiratory Rate 20 20 Blood Pressure 143/67 H 143/67 H Pulse Oximetry 97 97 97 Oxygen Delivery Method Room Air Room Air Room Air 05/28/25 16:28 05/28/25 17:52 05/28/25 18:11 Temperature Pulse Rate 95 86 Respiratory Rate 28 H 18 Blood Pressure 153/66 H 153/86 H Pulse Oximetry 95 Oxygen Delivery Method Room Air 05/28/25 19:25 05/28/25 19:39 05/28/25 20:03 Temperature 101.6 F H Pulse Rate 138 H 120 H 103 H Respiratory Rate 26 H 24 H Blood Pressure 136/110 H 136/110 H 127/24 L Pulse Oximetry 90 L 100 Oxygen Delivery Method Room Air Room Air 05/28/25 20:14 05/28/25 20:18 05/28/25 20:32 Temperature Pulse Rate 99 113 H 104 H Respiratory Rate 17 29 H Blood Pressure 124/54 L 133/75 151/81 H Pulse Oximetry Oxygen Delivery Method 05/28/25 20:48 05/28/25 21:03 05/28/25 21:17 Temperature Pulse Rate 111 H 101 H 95 Respiratory Rate 25 H 22 H 23 H Blood Pressure 153/127 H 126/56 L 129/63 Pulse Oximetry Oxygen Delivery Method 05/28/25 21:17 05/28/25 21:32 05/28/25 21:32 Temperature Pulse Rate 95 89 86 Respiratory Rate 23 H 17 17 Blood Pressure 129/63 136/61 136/61 Pulse Oximetry 95 95 Oxygen Delivery Method Room Air 05/28/25 21:40 05/28/25 21:47 Temperature 99.1 F Pulse Rate 85 Respiratory Rate 16 Blood Pressure 129/74 Pulse Oximetry 95 Oxygen Delivery Method BMI result Body Mass Index 30.9 Course Course Course Narrative: This is an RME: Additional HPI, ROS, PE not included below will be deferred to primary provider. RME assessment and note performed by: Radha Jones PA-C This is a [id number]-male, with a past medical history of AFib on Eliquis, pulmonary edema, hypertension, CHF, hyperlipidemia, who presents to the ER with complaints of productive cough with low grade fevers. Patient reports that he has an extensive cardiac history. Patient is visiting from [place], states that in January he was admitted to and hospital after being found to be in pulmonary edema in rapid a flutter. Shortly after that he had a cardioversion. He states that over the last week he has had a cough, and feels very weak. Patient with bibasilar rales noted on exam, very diminished. I received a expect phone call from [facility] urgent care. No pitting edema noted on examination. Informed charge nurse to bring ptt back mill[facility]. Plan: Labs, EKG, chest x-ray, further ER evaluation needed. Medications Administered Generic Name Dose Route Start Last Admin Trade Name Freq PRN Reason Stop Dose Admin Apixaban 5 mg 05/28/25 23:25 05/29/25 08:48 Apixaban 5 Mg Tablet PO 5 mg BID DAWNA Administration Atorvastatin Calcium 10 mg 05/29/25 09:00 05/29/25 08:48 Atorvastatin Calcium 10 Mg Tablet PO 10 mg DAILY DAWNA Administration Lisinopril 10 mg 05/29/25 09:00 05/29/25 08:48 Lisinopril 10 Mg Tablet PO 10 mg DAILY DAWNA Administration Protocol Sodium Chloride 3 ml 05/29/25 00:00 05/29/25 07:42 0.9 % Sodium Chloride Flush 3 Ml Syringe IVFLUSH 3 ml QSHIFT DAWNA Administration Spironolactone 12.5 mg 05/29/25 09:00 05/29/25 08:47 Spironolactone 25 Mg Tablet PO 12.5 mg DAILY DAWNA Administration Protocol Venlafaxine HCl 75 mg 05/29/25 09:00 05/29/25 08:48 Venlafaxine Hcl Er 75 Mg Cap.Er.24h PO 75 mg DAILY DAWNA Administration Discontinued Medications Generic Name Dose Route Start Last Admin Trade Name Franchesca PRN Reason Stop Dose Admin Acetaminophen 975 mg 05/28/25 19:26 05/28/25 19:46 Acetaminophen 325 Mg Tablet PO 05/28/25 19:27 975 mg ONCE ONE Administration Benzonatate 200 mg 05/28/25 20:48 05/28/25 20:52 Benzonatate 100 Mg Capsule PO 05/28/25 20:49 200 mg ONCE ONE Administration Ceftriaxone Sodium 1 gm 05/28/25 19:26 05/28/25 19:53 Ceftriaxone Sodium 1 Gm Vial IVPUSH 05/28/25 19:27 1 gm ONCE ONE Administration Albuterol Sulfate 2.5 mg/ 0 mg 05/28/25 18:06 05/28/25 18:08 Albuterol/Ipratropium 3 ml INHALE 05/28/25 18:07 1 dose ONCE ONE Administration Diltiazem HCl 25 mg 05/28/25 19:26 05/28/25 19:39 Diltiazem Hcl 50 Mg/10 Ml Vial IVPUSH 05/28/25 19:27 25 mg ONCE ONE Administration Doxycycline Monohydrate 100 mg 05/28/25 19:26 05/28/25 19:48 Doxycycline Monohydrate 100 Mg Capsule PO 05/28/25 19:27 100 mg ONCE ONE Administration Furosemide 40 mg 05/28/25 17:40 05/28/25 17:52 Furosemide 40 Mg Tablet PO 05/28/25 17:41 40 mg ONCE ONE Administration Protocol Guaifenesin/Codeine Phosphate 5 ml 05/28/25 17:41 05/28/25 17:52 Guaifen/Codeine Sf 200/20/10ml 10 Ml Liquid PO 05/28/25 17:42 5 ml ONCE ONE Administration Sodium Chloride 1,000 mls @ 999 mls/hr 05/28/25 19:45 05/28/25 20:53 Ns IV 05/28/25 20:45 Infused .Q1H1M DAWNA Infusion Lactated Ringer's 500 mls @ 999 mls/hr 05/28/25 22:03 05/29/25 00:00 Lr IV 05/28/25 22:33 Infused .Q31M STA Infusion Levalbuterol HCl 1.25 mg 05/28/25 22:01 05/28/25 23:02 Levalbuterol Hcl 1.25 Mg/3 Ml Vial.Neb INHALE 05/28/25 22:02 1.25 mg ONCE STA Administration Melatonin 9 mg 05/28/25 22:01 05/28/25 22:37 Melatonin 3 Mg Tablet PO 05/28/25 22:02 9 mg ONCE STA Administration Metoprolol Tartrate 25 mg 05/28/25 20:04 05/28/25 20:14 Metoprolol Tartrate 25 Mg Tablet PO 05/28/25 20:05 25 mg ONCE ONE Administration Protocol Medical Decision Making Medical Decision Making [facility] Narrative: This is a 74-year-old male presented hospital today for evaluation of persistent productive cough for the past 10 days. We will obtain chest x-ray for the patient's EKG did show atrial fibrillation. Patient's BNP is slightly elevated at 926. Patient's alk-phos is normal at 124. to his cardiomyopathy, patient has leukocytosis of 14.5. On my impression I suspect patient may have pneumonia versus bronchitis. We will obtain chest x-ray to see. This sounds more infectious to me like upper respiratory infection. However given his history of cardiomyopathy and may be CHF exacerbation as well. DuoNeb will be given the patient. We will plan to give patient some Lasix. Codeine syrup will be given for cough symptoms Review patient's lab work. He has leukocytosis 14.5 elevated lactic acid of 2.2. Patient's troponin is not elevated BNP slightly elevated. I was consider possible pulmonary edema secondary to CHF. He did get a dose IV Lasix. However in the setting of possible sepsis and likely pneumonia. The patient will be covered with IV ceftriaxone and p.o. doxycycline. Being mindful of QT prolongation from azithromycin. On my reassessment patient suddenly developed AFib RVR. Rate in the 150's. I did give patient a dose of IV diltiazem at bases with some p.o. metoprolol. He does take 12.5 mg metoprolol. Patient's heart rate remained carmen in the 90s irregular rhythm of AFib. At this time we will plan to admit the patient hospital for treatment of pneumonia in AFib RVR. Patient appears to be stable at this time. Differential Diagnosis Differential Diagnoses: The differential diagnosis associated with the presentation includes Pneumonia, bronchitis, CHF exacerbation, cardiomyopathy, AFib Consult Healthcare Provider Management of the patient was discussed with: Hospitalist Lab Data MDM Lab Attestation statement: I reviewed the patient's lab results. 05/29/25 03:59 05/29/25 03:59 Labs: Lab Results 05/28/25 05/28/25 Range/Units 13:49 19:53 WBC 14.5 H (4.8-10.8) X10*3/uL RBC 5.01 (4.60-5.80) X10*6/uL Hgb 14.5 (14.0-18.0) g/dl Hct 41.9 L (42.0-52.0) % MCV 83.6 (80.0-98.0) fL MCH 28.9 (27.0-33.0) pg MCHC 34.6 (31.0-36.0) g/dl RDW 15.4 (11.0-16.0) % Plt Count 260 (160-400) X10*3/uL MPV 9.9 (9.4-12.4) fL Immature Gran % (Auto) 0.6 H (0.0-0.4) % Neut % (Auto) 77.6 H (45-73) % Lymph % (Auto) 7.1 L (20-40) % Holt % (Auto) 14.3 H (2-11) % Eos % (Auto) 0.2 (0-4) % Baso % (Auto) 0.2 (0-2) % Lymph # (Auto) 1.0 L (1.2-4.9) X10*3/uL Holt # (Auto) 2.1 H (0.1-1.2) X10*3/uL Eos # (Auto) 0.0 (0.0-0.4) X10*3/uL Baso # (Auto) 0.0 (0.0-0.2) X10*3/uL Abs Immat Gran (auto) 0.09 H (0.00-0.03) X10*3/uL Absolute Neuts (auto) 11.2 H (2.0-8.3) x10*3/uL Absolute Nucleated RBC 0.000 (0.0-0.012) X10*3/uL Nucleated RBC % (auto) 0.0 (0.0-0.2) /100WBC Smear Tech's Comments VERIFIED Sodium 137 (135-145) mmol/L Potassium 3.9 (3.3-5.1) mmol/L Chloride 102 (96-108) mmol/L Carbon Dioxide 29 (22-29) mmol/L Anion Gap 10 L (12-20) BUN 16 (9-16) mg/dL Creatinine 0.98 (0.5-1.4) mg/dL Estim Creat Clear Calc 84.6 Estimated GFR > 60 Random Glucose 98 (60-115) mg/dL Lactic Acid 2.2 H* (0.5-2.0) mmol/L Calcium 9.2 (8.4-10.2) mg/dL Magnesium 2.0 (1.6-2.6) mg/dL Total Bilirubin 1.0 (0.0-1.0) mg/dL Direct Bilirubin 0.4 (0.0-0.5) mg/dL AST 32 (5-37) U/L ALT 33 (0-40) U/L Alkaline Phosphatase 124 H (39-117) U/L Troponin I High Sens 14.5 (<3.5-35.0) ng/L NT-Pro-B Natriuret Pep 926.2 H (<300) pg/mL Total Protein 7.2 (6.5-8.0) g/dL Albumin 4.2 (3.5-5.0) g/dL Procalcitonin 0.06 ng/mL TSH 2.19 (0.32-4.0) uIU/mL Independent Interpretation I performed an independent interpretation of an: EKG, Rhythm Strip and Plain X-Ray Radiology Impression Discussion of test interpretation with radiology: I have reviewed the radiologist's reading. Chronic Conditions Nonischemic cardiomyopathy, atrial flutter Critical Care Time Critical Care Time Critical Care Time: Yes Total Critical Care Time: 50 Attestation: Time is exclusive of separately billable procedures. Time includes: direct patient care, patient reassessment, coordination of patient care, interpretation of data (laboratory data, pulse oximetry, arterial blood gases and chest xrays), review of patient's medical records, medical consultation and documentation of patient care. Procedures excluded from critical care time: central intravenous line placement and electrocardiography. Discharge Plan Discharge Clinical Impression: Atrial fibrillation with RVR Pneumonia Qualifiers: Pneumonia type: due to unspecified organism Laterality: unspecified laterality Lung location: unspecified part of lung Qualified Code(s): J18.9 - Pneumonia, unspecified organism Sepsis Qualifiers: Sepsis type: sepsis due to unspecified organism Sepsis acute organ dysfunction status: unspecified Qualified Code(s): A41.9 - Sepsis, unspecified organism Patient Disposition: Admitted As Inpatient Interventions: Admission Worksheet (ED) Last Done: 05/29/25 05:29
--- NOTE | 2025-05-28 12:29 | ECG_ITS ---
Test Reason : SOB Blood Pressure : */* mmHG Vent. Rate : 95 BPM Atrial Rate : * BPM P-R Int : * ms QRS Dur : 158 ms QT Int : 368 ms P-R-T Axes : * -78 27 degrees QTcB Int : 462 ms Atrial fibrillation Right bundle branch block Left anterior fascicular block Bifascicular block Abnormal ECG No previous ECGs available Referred By: Radha Jones Electronically Signed By: NAYAN LEROY
[2025-05-28 14:10] LABS: Hematocrit 41.9 % (42.0-52.0); Hemoglobin 14.5 g/dl (14.0-18.0); Imm Gran Abs Auto 0.09 X10*3/uL (0.00-0.03); Imm Gran Pct Auto 0.6 % (0.0-0.4); Lymphocytes Absolute Auto 1.0 X10*3/uL (1.2-4.9); MANUAL DIFF FLAG SCAN; Mean Corpuscular HGB Conc 34.6 g/dl (31.0-36.0); Mean Corpuscular Hemoglobin 28.9 pg (27.0-33.0); Mean Corpuscular Volume 83.6 fL (80.0-98.0); NRBC Abs Auto 0.000 X10*3/uL (0.0-0.012); NRBC Pct Auto 0.0 /100WBC (0.0-0.2); Platelet Count 260 X10*3/uL (160-400); Red Blood Count 5.01 X10*6/uL (4.60-5.80); SCAN SMEAR FLAG 1; White Blood Count 14.5 X10*3/uL (4.8-10.8)
[2025-05-28 14:17] LABS: Alanine Aminotransferase 33 U/L (0-40); Albumin Level 4.2 g/dL (3.5-5.0); Alkaline Phosphatase 124 U/L (39-117); Anion Gap 10 (12-20); Aspartate Amino Transferase 32 U/L (5-37); Blood Urea Nitrogen 16 mg/dL (9-16); Calcium 9.2 mg/dL (8.4-10.2); Carbon Dioxide 29 mmol/L (22-29); Chloride 102 mmol/L (96-108); Creatinine Clr Calc Pharmacy 84.6; Estimated Glomerular Filt Rate > 60; Magnesium 2.0 mg/dL (1.6-2.6); Potassium 3.9 mmol/L (3.3-5.1); Sodium 137 mmol/L (135-145); Total Protein 7.2 g/dL (6.5-8.0)
[2025-05-28 14:25] LABS: NT Pro B Type Natriuretic Pept 926.2 pg/mL (<300); Troponin-I High Sensitivity 14.5 ng/L (<3.5-35.0)
--- NOTE | 2025-05-28 14:40 | PC.NURSE ---
Patient Presents to ED with productive cough for about ten days Patient went to urgent care Urgent reports possible PNA Patient has hx of cardiac flutter Denies SOB, chest pain, denies sick contact but was on recent flight plan of care on going
--- OUTSIDE RECORDS SUMMARY | 2025-05-28 16:23 | XMS_ITS | Clinical Summary ---
Author Organization Pending [facility] To [facility] Address [address] [place] [address] Care Team Providers Care Doctor Of Podiatric Medicine Name Role Phone Raj Powell MD Primary Care Provider + [phone] Stacie Damon RN Unavailable Unav ailable Joe Fletcher RN Unavailable Unavailabl e Allergies No known active allergies Medications atorvastatin calcium (LIPITOR) 10 mg tablet Take one tablet (10 mg dose) by mouth daily. Active sertraline (ZOLOFT) 50 mg tablet Take one tablet (50 mg dose) by mouth daily. Active CYANOCOBALAMIN PO Take 1 each by mouth daily. (Gummies) Active dapagliflozin (FARXIGA) 10 mg tablet Take one tablet (10 mg dose) by mouth daily. 30 tablet 5 Active lisinopril (PRINIVIL,ZESTRI L) 5 mg tablet Take one tablet (5 mg dose) by mouth daily. 30 tablet 5 Active Additional Information Patient taking differently: 10 mgOral Daily, Reason: Dose adjustment, Reported on 04/23/2025 spironolactone (ALDACTONE) 25 mg tablet Take one half tablet (12.5 mg dose) by mouth daily. 30 tablet 5 Active metoprolol succinate (TOPROL XL) 25 mg 24 hr tablet Take one tablet (25 mg dose) by mouth daily. 30 tablet 5 Active apixaban (ELIQUIS) 5 mg tabletIndication s:Atrial Fibrillation Take one tablet (5 mg dose) by mouth 2 (two) times daily. 60 tablet 5 Active Active Problems Problem Noted Date Diagnosed Date New onset of congestive heart failure 02/20/2025 CHF (congestive heart failure) 02/20/2025 Recurrent major depression in partial remission 08/08/2024 Objective tinnitus of both ears 12/13/2021 Vitamin D deficiency 12/13/2021 Hyperlipidemia 02/25/2020 Essential hypertension 02/25/2020 Encounters Date Type Department Care Team Description 05/22/2025 9:30 AM EDT - 05/22/2025 11:59 PM EDT Hospital Encounter [facility] [place] [address] [place] [address] Cliff Mondragon MD Discharge Disposition: Home or Self Care 05/20/2025 9:30 AM EDT - 05/20/2025 11:59 PM EDT Hospital Encounter [place] [address] [place] [address] Cliff Mondragon MD Discharge Disposition: Home or Self Care 05/15/2025 9:30 AM EDT - 05/15/2025 11:59 PM EDT Hospital Encounter [place] [address] [place] [address] Cliff Mondragon MD Discharge Disposition: Home or Self Care 05/13/2025 9:30 AM EDT - 05/13/2025 11:59 PM EDT Hospital Encounter [place] [address] [place] [address] Cliff Mondragon MD Discharge Disposition: Home or Self Care 05/08/2025 9:30 AM EDT - 05/08/2025 11:59 PM EDT Hospital Encounter [place] [address] [place] [address] Cliff Mondragon MD Discharge Disposition: Home or Self Care 05/06/2025 9:30 AM EDT - 05/06/2025 11:59 PM EDT Hospital Encounter [place] [address] [place] [address] Cliff Mondragon MD Discharge Disposition: Home or Self Care 05/01/2025 9:30 AM EDT - 05/01/2025 11:59 PM EDT Hospital Encounter [place] [address] [place] [address] Cliff Mondragon MD Discharge Disposition: Home or Self Care 04/29/2025 9:02 AM EDT - 04/29/2025 11:59 PM EDT Hospital Encounter [place] [address] [place] [address] Cliff Mondragon MD Discharge Disposition: Home or Self Care 04/25/2025 Documentation Only [place] [place] [address] Janine Acuna RN 04/23/2025 9:00 AM EDT - 04/23/2025 11:59 PM EDT Hospital Encounter [place] [address] [place] [address] Cliff Mondragon MD Discharge Disposition: Home or Self Care 04/18/2025 9:34 AM EDT - 04/18/2025 11:59 PM EDT Hospital Encounter [address] [address] Cliff Mondragon MD Discharge Disposition: Home or Self Care 03/03/2025 Care Coordinates Care Coordinates [address] [address] Radha Boykin, YAZAN Counseling and coordination of care (Primary Dx); Acute HFrEF (heart failure with reduced ejection fraction) (*) 02/26/2025 2:06 PM EDT Anesthesia Event [facility] [address] [place] [address] Ankush Rowley MD Neal, Kelley, YAZAN 02/20/2025 12:13 PM EDT - 02/27/2025 2:03 PM EDT Hospital Encounter [facility] [address] [place] [phone] Martin Stanton DO Brogden, Lucas, DO Atkinson, Wendy L., MD Shortness of breath (Primary Dx); New onset of congestive heart failure (*); CHF (congestive heart failure) (*) Discharge Disposition: Home or Self Care from Last 3 Months Social History Tobacco Use Types Packs/Day Years Used Date Smoking Tobacco: Never Smokeless Tobacco: Never Tobacco Cessation:Counseling Given: Not Answered Alcohol Use Standard Drinks/Week Comments Yes 0 (1 standard drink = 0.6 oz pur e alcohol) socially [facility] Utilities Answer Date Recorded In the past [...] more drinks on one occasion? Never 02/21/2025 [facility] of Occupat ional Health - Occupational Stress [...] any time in the past 12 m [facility], were you homeless or living in a fci (including now)? No 02/21/2025 HITS Answer Date [...] on file Sexual Orientation Not on file Last Filed Vital Signs Vital Sign Reading Time Taken Comments Blood Pressure 118/70 02/27/2025 7:49 AM EDT Pulse 71 02/27/2025 8:23 AM EDT Temperature 36.7 C (98.1 F) 02/27/2025 7:49 AM EDT Respiratory Rate 20 02/27/2025 7:49 AM EDT Oxygen Saturation 100% 02/27/2025 7:49 AM EDT Inhaled Oxygen Concentration - - Weight 110.9 kg (244 lb 8 oz) 02/27/2025 4:31 AM EDT Height 185.4 cm (6' 1 ) 02/20/2025 12:11 PM EDT Body Mass Index 32.26 02/20/2025 12:11 PM EDT Plan of Treatment Upcoming Encounters Date Type Department Care Team (Late st Contact Info) Description 05/29/2025 9:30 AM EDT Appointment [facility]ending [facility] [address] [place] [address] Cliff Mondragon MD [address] [place] [phone] 06/03/2025 9:30 AM EDT Appointment [facility]ending [facility] [address] [place] [address] Cliff Mondragon MD [address] [place] [phone] 06/05/2025 9:30 AM EDT Appointment [facility] [address] [place] [address] Cliff Mondragon MD [address] [place] [phone] 06/10/2025 9:30 AM EDT Appointment [facility] [place] [address] [place] [address] Cliff Mondragon MD [address] [place] [address] 06/12/2025 9:30 AM EDT Appointment [facility] [place] [address] [place] [address] Cliff Mondragon MD [address] [place] [address] 06/17/2025 9:30 AM EDT Appointment [facility] [place] [address] [place] [address] Cliff Mondragon MD [address] [place] [phone] 2025 9:30 AM EDT Appointment [facility] [place] [address] [place] [address] Cliff Mondragon MD [address] [place] [phone] 06/24/2025 9:30 AM EDT Appointment [facility]ending [facility] [address] [place] [address] Cliff Mondragon MD [address] [place] [address] 06/26/2025 9:30 AM EDT Appointment Pending [facility] [address] [place] [address] Cliff Mondragon MD [address] [place] [phone] 07/01/2025 9:30 AM EST Appointment [facility]ending [facility] [place] [address] [place] [address] Cliff Mondragon MD [address] [place] [address] 07/03/2025 9:30 AM EST Appointment [facility]ending [facility] [place] [address] [place] [address] Cliff Mondragon MD [address] [place] [address] 07/08/2025 9:30 AM EST Appointment [facility]ending [facility] [place] [address] [place] [address] Cliff Mondragon MD [address] [place] [phone] 07/10/2025 9:30 AM EST Appointment [facility]ending [facility] [place] [address] [place] [address] Cliff Mondragon MD [address] [place] [phone] 07/15/2025 9:30 AM EST Appointment [facility] [address] [place] [address] Cliff Mondragon MD [address] [place] [address] 07/17/2025 9:30 AM EST Appointment [facility] [address] [place] [address] Cliff Mondragon MD [address] [place] [phone] Health Maintenance Due Date Last Done Comments Cologuard 1950 Colonoscopy 1950 Colorectal Cancer Screening 1950 FOBT/IFOB 1950 RSV Adult and (1 - Risk 50-74 years 1-dose series) 2000 Zoster Vaccine (1 of 2) 2000 Influenza Vaccine (#1) 2025 , 05/18/2020, 05/23/2019 Medicare Annual Wellness 08/08/2025 08/08/2024 CBC 08/26/2025 02/24/2025, 01/27, 02/20/2025 Creatinine Level 08/30/2025 02/27/2025, 09/2024, 02/25/2025, Additional history exists Potassium Level 02/27/2026 02/27/2025, 07/0 09/2024, 02/25/2025, Additional history exists Sodium 02/27/2026 02/27/2025, 070 09/2024, 02/25/2025, Additional history exists DTaP/Tdap/Td Vaccines (2 - Td or Tdap) 05/23/2029 05/23/2019 Pneumococcal Vaccine: 50+ Years Completed 10/30/2017, 10/21/2015 Hepatitis A Vaccine Aged Out No longe r eligible based on patient's age to complete this topic Meningococcal B Vaccine Aged Out No l onger eligible based on patient's age to complete this topic Meningococcal Conjugate Vaccine Aged Out No longer eligible based on patient's age to complete this topic Procedures Procedure Name Priority Date/Time Associated Diagnosis Comments BASIC METABOLIC PANEL Routine 02/27/2025 5:32 AM EDT TRANSESOPHAGEAL ECHOCARDIOGRAM WO ENHANCE AGENT Inpatient 02/26/2025 3:11 PM EDT ECG 12-LEAD Routine 02/26/2025 2:31 PM EDT MAGNESIUM Routine 02/26/2025 6:00 AM EDT BASIC METABOLIC PANEL Routine 02/26/2025 6:00 AM EDT BASIC METABOLIC PANEL Routine 02/25/2025 6:10 AM EDT CBC Routine 02/24/2025 5:15 AM EDT from Last 3 Months or Most Recently Relevant to Health Maintenance Results * (ABNORMAL) Basic Metabolic Panel (02/27/2025 5:32 AM EDT) Only the most recent of3 resultswithin the time period is included. Na 136 136 - 145 mmol/L 02/27/2025 7:04 AM EDT [facility] Potassium 4.0 3.4 - 5.1 mmol/L 02/27/2025 7:04 AM EDT [facility] Cl 101 98 - 107 mmol/L 02/27/2025 7:04 AM EDT [facility] CO2 24 20 - 31 mmol/L 02/27/2025 7:04 AM EDT [facility] AGAP 11 mmol/L 02/27/2025 7:04 AM EDT [facility] Glucose 116(H) 74 - 106 mg/dL 02/27/2025 7:04 AM EDT [facility] BUN 26(H) 9 - 23 mg/dL 02/27/2025 7:04 AM EDT [facility] Creatinine 1.07 0.70 - 1.30 mg/dL 02/27/2025 7:04 AM EDT [facility] Ca 9.0 8.7 - 10.4 mg/dL 02/27/2025 7:04 AM EDT [facility] BUN/CREAT RATIO 24.3 7:04 AM EDT [facility] eGFR >=60 >=60 mL/min/1. 73m2 02/27/2025 7:04 AM EDT [facility] Comment: Normal GFR (glomerular filtration rate) > 60 mL/min/1.73 meters squared, < 60 may include impaired kidney function. Calculation based on the Chronic Kidney Disease Epidemiology Collaboration (CK-EPI)equation refit without adjustment for race. Blood Venipuncture / Unknown 02/27/2025 5:32 AM EDT 02/27/2025 6:35 AM EDT us Yue Corrales MD LAB BLOOD ORDERABLES Final Result [facility] [address] [address], * Transesophageal Echocardiogram WO Enhance Agent (02/26/2025 3:11 PM EDT) EF 0 % [facility] Anatomical Region Laterality Modality Chest Ultrasound 02/26/2025 2:07 PM EDT Narrative Procedure Note Clovis Eduardo MD - 02/26/2025 Transesophageal Echocardiographic Report Patient Name: SHAWN CORTES FRPatient ID: [id number] Account #: : [id number] (74y 8m) Gender: MStudy Date: 02-26-2025 02:07:27 PM Ht(Inch): 73 Wt(Lb): 244.01 BSA: 2.39Accession #: [id number] Tech: Location: [facility] TELE 5Order Provider: DIMITRIOS ANDERSEN Heart Rate: 90 BMI: 32.19 BP: 118/92Quality: Good Ref Provider: DIMITRIOS ANDERSEN PROCEDURES: Transesophageal Echo Report: [id number] Echocardiography, transesophageal, real-time with image documentation (2D) including probe placement, image acquisition, interpretation, and report; +[id number] Doppler echocardiography, limited pulsed wave and/or continuous wave with spectral display; +[id number] Doppler echocardiography color flow velocity mapping. Performing Physician: Clovis Eduardo MD, [facility]. Description: A complete transesophageal echocardiogram was performed inthe Non-invasive Cardiovascular laboratory. Additional evaluation with colorflow Doppler and limited spectral Doppler was performed. Continuous HR, BP,ECG, and O2 sat monitoring was performed during the procedure. The patientreceived pre-procedural education. Baseline vital signs and a focused history and physical were obtained. The MICHELLE study was then performed under deepsedation with IV propofol provided by the anesthesiology service. After suitable sedation, the probe was passed without difficulty. Continuous pulseoximetry, electrocardiographic monitoring, and blood pressure monitoring weremaintained throughout the procedure. No complications were noted and the patient was recovered without difficulty. INDICATIONS: R94.31 abnormal electrocardiogram [ECG] [EKG]. CONCLUSIONS: 1. Successful transesophageal echocardiogram guided cardioversion. 2. Left ventricular systolic function appears severely reduced. Left ventricular ejection fraction is visually, estimated at: 25 %. 3. Mild to moderate mitral valve regurgitation. 4. There is trivial aortic valve regurgitation. FINDINGS: Consent: Informed consent was obtained from the patient in writing. Therisks and benefits of the procedure were explained in detail to the patient, including but not limited to the risk of aspiration, dysphagia, andesophageal perforation. After a thorough discussion of these risks and benefits, the patient agreed to proceed. Left Ventricle: Left ventricular systolic function appears severelyreduced. Left ventricular ejection fraction is visually, estimated at: 25 %. Right Ventricle: The right ventricle appears dilated. Right ventricular systolic function appears moderately reduced. Left Atrium: Severely dilated left atrium. The left atrial appendage isnormal in appearance with no evidence of thrombus. Right Atrium: Severely dilated right atrium. Atrial Septum: The interatrial septum is normal in appearance. Mitral Valve: The mitral valve is structurally normal. Mild to moderatemitral valve regurgitation. Aortic Valve: The aortic valve is structurally normal. There is trivialaortic valve regurgitation. Tricuspid Valve: Normal appearance of the tricuspid valve with physiologic regurgitation. Pulmonic Valve: Normal appearance of the pulmonic valve with physiologic pulmonic regurgitation. Electronically Signed By: CHRISTINE Ennis 2025-02-26 14:47:46 EDT us Dimitrios Andersen NP CV ECHO ORDERABLES Final Resu lt * ECG 12-Lead (02/26/2025 2:31 PM EDT) 02/26/2025 2:31 PM EDT 02/26/2025 9:48 PM EDT Narrative [place] [facility] - 02/26/2025 9:48 PM EDT Diagnosis Class Abnormal Acquisition Device MAC7 Ventricular Rate 64 Atrial Rate 64 P-R Interval 208 QRS Duration 152 Q-T Interval 470 QTC Calculation(Bazett) 484 Calculated P Roebling 63 Calculated R Roebling -69 Calculated T Roebling 70 Diagnosis Sinus rhythm with premature supraventricular complexes first degree AV block Right bundle branch block Left anterior fascicular block ; high risk for complete heart block. Abnormal ECG When compared with ECG of 21-FEB-2025 13:36, premature supraventricular complexes are now present Vent. rate has decreased BY 31 BPM Criteria for Septal infarct are no longer present T wave inversion less evident in Anterolateral leads Marvin Aparicio ([id number]) on 02/26/2025 9:48:15 PM certifies that he/she has reviewed the ECG tracing and confirms the independent interpretation is correct. us Clovis Eduardo MD ECG ORDERABLES Final Result [place] [facility] * Magnesium (02/26/2025 6:00 AM EDT) Mg 2.3 1.6 - 2.6 mg/dL 02/26/2025 6:36 AM EDT [facility] Blood Venipuncture / Unknown 02/26/2025 6:00 AM EDT 02/26/2025 6:07 AM EDT Yue Corrales MD LAB BLOOD ORDERABLES Final Result [facility] [place] [address], * (ABNORMAL) CBC (02/24/2025 5:15 AM EDT) WBC 11.0(H) 4.0 - 10.5 thou/mcL 02/24/2025 5:59 AM EDT [facility] RBC 5.49 4.63 - 6.08 million/mc L 02/24/2025 5:59 AM EDT [facility] HGB 15.6 13.7 - 17.5 gm/dL 02/24/2025 5:59 AM EDT [facility] HCT 47.4 40.1 - 51.0 % 02/24/2025 5:59 AM EDT [facility] MCV 86.3 79.0 - 92.2 fL 02/24/2025 5:59 AM EDT [facility] MCH 28.4 25.7 - 32.2 pg 02/24/2025 5:59 AM EDT [facility] MCHC 32.9 32.3 - 36.5 gm/dL 02/24/2025 5:59 AM EDT [facility] [address] 266 150 - 400 thou/mcL 02/24/2025 5:59 AM EDT [facility] RDW SD 44.0 35.1 - 46.3 fL 02/24/2025 5:59 AM EDT [facility] MPV 11.6 9.4 - 12.4 fL 02/24/2025 5:59 AM EDT [facility] NRBC% 0.0 0.0 - 0.2 /100WBC 02/24/2025 5:59 AM EDT [facility] Absolute NRBC Count 0.00 0.00 - 0.01 thou/mcL 02/24/2025 5:59 AM EDT [facility] Blood Venipuncture / Unknown 02/24/2025 5:15 AM EDT 02/24/2025 5:39 AM EDT us Shin Durham DO LAB BLOOD ORDERABLES Final Resu lt [facility] [address] [place] [address], from Last 3 Months or Most Recently Relevant to Health Maintenance Insurance [employer] MED[employer] Advance Directives For more information, please contact: [phone] * Full Code (Latest Code Status on File) Date Activated Date Inactivated Comments 02/20/2025 6:24 PM Question Answer Comments (A) CARDIOPULMONARY RESUSCITATION: Attem pt Resuscitation (CPR) if pulseless and not breathing (B) MEDICAL INTERVENTIONS: Full Scope of Treatment if person has pulse and/or is breathing Scope details: Use intubation, adva nced airway interventions, mechanical ventilation, cardioversion as indicated, medical treatment, IV fluids, etc.; also provide comfort measures Care Teams Doctor Of Podiatric Medicine Relationship Specialty Start Date End Date Raj Powell MD PCP - General Family Medicine 02/20/25 Stacie Damon, junior database administrator 02/22/25 Joe Fletcher, junior database administrator 02/22/25
[2025-05-28] MEDS: guaiFEN/Codeine SF 200/20/10ML 10 ML LIQUID 5 ML PO (17:52)
[2025-05-28] MEDS: Albuterol Sulfate 2.5 MG, Albuterol/Iprat 2.5/0.5MG 3 ML 3 ML INHALE (18:08)
--- NOTE | 2025-05-28 20:23 | PC.NURSE ---
IV placed by provider, medicated per oct, repeat Ekg, blood cultures and lactic collected and sent.
[2025-05-28 21:57] LABS: Reflex Lactate? Lactic Acid Added
--- NOTE | 2025-05-28 22:17 | P.HPHOSP_ITS ---
History of Present Illness Date of Service: 05/28/25 Attending physician on admission: Cristel Moya Chief Complaint: Cough Checo Cortes is a pleasant 74 years old man with past medical history significant for a-flutter s/p cardiovertions on Eliquis, HFrEF (non ischemic cardiomyopathy), moderate pulmonary hypertension, essential hypertension and hyperlipidemia presents to the emergency department complaining of feeling unwell over the last 10 days. Reported productive cough of greenish sputum, mild wheezing, nasal congestion and low-grade fever. He denies shortness or breath or chest pain. Patient is visiting from [place]. He was recently admitted for one-week after he had rapid a flutter requiring cardioversion; he was also found to have bilateral pleural effusions and RBBB. A cardiac cath was performed and he did not require open heart surgery or stenting. His heart rate was converted to sinus rhythm and no currently taking rate control agents. He does have urinary urgency. He denied any gastrointestinal symptoms. He denied history of tobacco smoking, alcohol abuse or illicit drug use. His , Fani, was at bedside and contributed to HPI. mentioned that the patient was seen in the urgent care and came back negative for influenza and COVID-19. In the ED he was found to have temperature of 101.6 degrees, heart rate of 138 consistent with AFib and tachypnea. His blood pressure has been stable, last BP is 129/63. O2 sats 90% on room air and currently on 2 L/min of supplemental oxygen via nasal cannula. Blood workup showed leukocytosis of 14.6, hemoglobin 14.5 and platelets 260. There is no leukocytosis of 14.3. Lactic acid 2.2. LFTs are normal. ProBNP is 926.2 and troponin 14.5. ECG showed rapid AFib and right bundle branch block. ED tx: Acetaminophen 975 mg, albuterol 2.5 mg nebs, benzonatate 200 mg, doxycycline 100 mg IV, ceftriaxone 1 g IV, diltiazem 25 mg IV furosemide 40 mg, metoprolol tartrate 25 mg p.o. Review of Systems 2 Review of Systems: All 12 systems were reviewed and normal except as noted in HPI. [facility] Medical History (Updated 05/28/25 @ 23:22 by Cristel Moya MD) Nonischemic cardiomyopathy Pulmonary hypertension Right bundle branch block Thyroid nodule Hyperlipidemia Depression Heart failure with reduced ejection fraction History of cardioversion Atrial flutter Social History Alcohol intake: current Alcohol intake frequency: holidays/special occasions only Smoked in Last 30 Days: No Use of substances other than those prescribed or required for medical reasons: No Advance Directives: No Advance Directives Information Provided: No Do you have a plan to hurt others: No Plan Meds Allergies Allergy/AdvReac Type Severity Reaction Status Date / Time No Known Allergies Allergy Verified 05/28/25 12:33 Active Medications: Current Medications Acetaminophen (Acetaminophen 325 Mg Tablet) 975 mg PO Q6H PRN PRN Reason: Pain, Mild 1-3,fever,headache Calcium Carbonate (Calcium Carbonate 750 Mg Tab.Chew) 750 mg PO Q4H PRN PRN Reason: Heartburn Lactated Ringer's (Lr) 500 mls @ 999 mls/hr IV .Q31M STA Stop: 05/28/25 22:33 Levalbuterol HCl (Levalbuterol Hcl 1.25 Mg/3 Ml Vial.Neb) 1.25 mg INHALE Q3H PRN PRN Reason: Wheezing Magnesium Hydroxide (Milk Of Magnesia 30 Ml Oral.Susp) 30 ml PO DAILY PRN PRN Reason: Constipation Melatonin (Melatonin 3 Mg Tablet) 6 mg PO BEDTIME PRN PRN Reason: Insomnia Sodium Chloride (0.9 % Sodium Chloride Flush 3 Ml Syringe) 3 ml IVFLUSH QSHIFT DAWNA Physical Exam 2 Vital Signs and Narrative: Vital Signs: Last Vital Signs Temp 99.1 F 05/28/25 21:40 Pulse 95 05/28/25 21:17 Resp 23 H 05/28/25 21:17 BP 129/63 05/28/25 21:17 Pulse Ox 100 05/28/25 20:03 O2 Del Method Room Air 05/28/25 20:03 BMI result Body Mass Index 30.9 Constitutional - Awake and Alert, No apparent distress. Nasal cannula in place. Pleasant. Cooperative. HEENT - PER, EOMI Heart - S1S2, RRR, No edema Lungs - Normal lung expansion, Normal respiratory effort, No respiratory distress. Mild tachypnea. Mild end expiratory wheezes + rhonchi. No crackles. Abdomen - NT / ND; +BS; No rebound or guarding Extremities - no calf tenderness bilaterally, no swelling Musculoskeletal - Normal inspection, normal ROM Skin - Warm/Dry Neurological - Alert & oriented x4. Moving all extremities spontaneously. Fluent speech. Psychological - Appropriate affect Results Labs 05/28/25 13:49 05/28/25 13:49 Labs: Laboratory Results - last 24 hr 05/28/25 05/28/25 13:49 19:53 MCV 83.6 MCH 28.9 MCHC 34.6 RDW 15.4 Plt Count 260 MPV 9.9 Immature Gran % (Auto) 0.6 H Neut % (Auto) 77.6 H Lymph % (Auto) 7.1 L [place] % (Auto) 14.3 H Eos % (Auto) 0.2 Baso % (Auto) 0.2 Lymph # (Auto) 1.0 L [place] # (Auto) 2.1 H Eos # (Auto) 0.0 Baso # (Auto) 0.0 Abs Immat Gran (auto) 0.09 H Absolute Neuts (auto) 11.2 H Absolute Nucleated RBC 0.000 Nucleated RBC % (auto) 0.0 Smear Tech's Comments VERIFIED Anion Gap 10 L Estim Creat Clear Calc 84.6 Estimated GFR > 60 Random Glucose 98 Lactic Acid 2.2 H* Calcium 9.2 Magnesium 2.0 Total Bilirubin 1.0 Direct Bilirubin 0.4 AST 32 ALT 33 Alkaline Phosphatase 124 H Troponin I High Sens 14.5 NT-Pro-B Natriuret Pep 926.2 H Total Protein 7.2 Albumin 4.2 Assessment and Plan (1) Atrial fibrillation with RVR: Status: Acute (2) Sepsis: Qualifiers: Sepsis acute organ dysfunction status: unspecified Sepsis type: sepsis due to unspecified organism Qualified Code(s): A41.9 - Sepsis, unspecified organism Status: Acute (3) Upper respiratory tract infection: Status: Acute (4) Acute lactic acidosis: Status: Acute Plan Checo Cortes is a 74 y/o man with a PHHx significant for a-flutter s/p cardiovertions on Eliquis -converted to NSR and moderate pulmonary hypertension who presents with: Sepsis secondary to upper respiratory tract infection, likely viral. Telemetry. Pulse oximetry. Supplemental O2 to keep O2 sats > 90%. Bronchodilator and antitussives as needed. Check respiratory panel and procalcitonin. Continue empiric IV antibiotic therapy with ceftriaxone and doxycycline for now. Obtain chest CT scan to assess for pneumonia. Atrial fibrillation with RVR; likely triggered by above (fever), currently rhythm controlled. Telemetry. Recheck ECG. Received metoprolol and diltiazem by ED. Gentle IV fluids. Will avoid rate control agents for now. Check TSH and recheck troponin. HFrEF/non-ischemic cardiomyopathy. No evidence of acute CHF. CXR showed clear lungs. Lungs auscultations - no crackles. Pro BNP borderline indetermined; will rechecked. Continue Farxiga, lisinopril and spironolactone Acute lactic acidosis, secondary to above. LR 500 mL bolus. Continue empiric IV antibiotic therapy. Blood culture obtained -will follow results. Continue to monitor. Essential hypertension. Continue lisinopril. Hyperlipidemia. Continue atorvastatin. Depression. Continue velanfaxine. Code status: Full DVT prophylaxis: Vandana Patient will need hospitalization for at least 2 midnights for sepsis secondary to upper respiratory infection with borderline low O2 sats treatment with supplemental oxygen, empiric IV antibiotic therapy and rn cardiac rehab. This note is constructed using voice recognition software. While every effort has been made to ensure accuracy, bituminous distributor operator errors may have been included. Quality Stroke Does the patient have a stroke diagnosis?: No VTE Prior VTE?: No VTE Risk Level:: Medical - moderate - high VTE Device Contraindication: Treatment Not Indicated VTE Drug Contraindication: N/A - Med Ordered
--- NOTE | 2025-05-28 22:40 | PC.NURSE ---
pt given a meal, medicated per oct.
[2025-05-28] MEDS: Lactated Ringers 500 ML 999 ML IV (22:44)
[2025-05-28 22:56] LABS: ~Lactic Acid-LAB USE ONLY 1.1 mmol/L (0.5-2.0)
[2025-05-28 23:20] LABS: Resp Syncy Virus RNA Qual PCR NEGATIVE (Negative); SARS COV2 PCR INHOUSE NEGATIVE (Negative)
[2025-05-28 23:24] LABS: Procalcitonin 0.06 ng/mL; Thyroid Stimulating Hormone 2.19 uIU/mL (0.32-4.0)
[2025-05-29] VITALS (11 sets, daily range): BP systolic 114–159; BP diastolic 38–72; PULSE 79–102; RESP 13–32; TEMP 36.6–37.2; O2SAT 94–97
[2025-05-29] MEDS: 0.9 % Sodium Chloride Flush 3 ML SYRINGE IVFLUSH ×3 (00:05→20:14)
--- NOTE | 2025-05-29 00:06 | PC.NURSE ---
pt medicated per mar.
[2025-05-29 05:36] LABS: Hematocrit 37.8 % (42.0-52.0); Hemoglobin 13.0 g/dl (14.0-18.0); Mean Corpuscular HGB Conc 34.4 g/dl (31.0-36.0); Mean Corpuscular Hemoglobin 28.4 pg (27.0-33.0); Mean Corpuscular Volume 82.7 fL (80.0-98.0); NRBC Abs Auto 0.000 X10*3/uL (0.0-0.012); NRBC Pct Auto 0.0 /100WBC (0.0-0.2); Platelet Count 222 X10*3/uL (160-400); Red Blood Count 4.57 X10*6/uL (4.60-5.80); White Blood Count 13.4 X10*3/uL (4.8-10.8)
[2025-05-29 05:46] LABS: Appearance Urine Clear; Glucose Urine UA >=1000 mg/dL (Negative); PH 6.0 (5.0-9.0); Specific Gravity - Urine 1.025 (1.005-1.025); UMIC TRIGGER UACC YES
[2025-05-29 06:03] LABS: NT Pro B Type Natriuretic Pept 828.2 pg/mL (<300); Troponin-I High Sensitivity 19.5 ng/L (<3.5-35.0)
[2025-05-29 06:04] LABS: Anion Gap 13 (12-20); Blood Urea Nitrogen 13 mg/dL (9-16); Calcium 8.5 mg/dL (8.4-10.2); Carbon Dioxide 23 mmol/L (22-29); Chloride 104 mmol/L (96-108); Creatinine Clr Calc Pharmacy 99.9; Estimated Glomerular Filt Rate > 60; Magnesium 1.9 mg/dL (1.6-2.6); Potassium 3.7 mmol/L (3.3-5.1); Sodium 136 mmol/L (135-145)
--- NOTE | 2025-05-29 07:30 | PC.NURSE ---
Pt up to bathroom. No c/o.
--- NOTE | 2025-05-29 08:20 | PHA.MEDREC ---
Addendum entered by José Olivas PharmD 05/29/25 08:29: reviewed Original Note: Pharmacy Consult ? Medication Reconciliation Pharmacy has completed the medication reconciliation. Spoke with pt and spouse at bedside and they were able to confirm pt medications. Pt confirmed he no longer takes Metoprolol; stopped it weeks ago by his Dr due to his heart rate dropping under 40 while taking it, he stopped Sertraline due to experiencing side effects and was switches to Venlafaxin and pt taking Venlafaxin 150mg QD; pt Dr started him on 1 tab (75mg) QD and states about 8-9 days ago he started taking 2 tabs (150mg) QD, pt also now experiencing side effects (tremors, shakes, Etc.)
[2025-05-29] MEDS: Venlafaxine HCl ER 75 MG CAP.ER.24H PO (08:48)
[2025-05-29 09:10] LABS: Chlamydia pneumoniae PCR Not Detected (Not Detect.); Coronavirus 229E PCR Not Detected (Not Detect.); Coronavirus HKU1 PCR Not Detected (Not Detect.); Coronavirus NL63 PCR Not Detected (Not Detect.); Coronavirus OC43 PCR Not Detected (Not Detect.); RSV PCR Not Detected (Not Detect.); Rhino/Enterovirus PCR Detected (Not Detect.)
--- NOTE | 2025-05-29 09:48 | MHC.CM.PN ---
CM met with Patient at bedside, in the ED and addressed IMM with him, providing Patient with the original and a copy will be placed on the chart. Patient lives in a house in [place] with his /HCP/Fani, who will transport at time of dc. Home/self care is his goal and CM has initiated and will follow for dc planning. PCP is Dr.Robert Andre Jr.
[2025-05-29 09:57] LABS: Influenza A H1 PCR Not Detected (Not Detect.); Influenza A H1-2009 PCR Not Detected (Not Detect.); Influenza A H3 PCR Not Detected (Not Detect.); SARS-CoV-2 PCR Not Detected (Not Detect.)
--- NOTE | 2025-05-29 12:00 | CA_ITS ---
Transthoracic Echocardiogram Patient (Last, First, Middle): Checo Cortes F Gender: Male Date of : 1950 Age: 74 Procedure Date: 05/29/2025 Procedure Type: Transthoracic Echocardiogram Location: ER Height: 185.42 cm Weight: 106.6 kg BSA: 2.30 m2 Heart Rate: 78 bpm BP: 121 / 67 mmHg Health Advisor: CHAD/GEORGINA Referring MD: Gayla Gimenez MD Symptoms: CHF recovered EF, CHF exacerbation Study Quality: Adequate w/Cotrast ECG Rhythm: Atrial flutter Conclusions: - The left ventricular systolic function is normal. The calculated ejection fraction is 58% by biplane method. - No obvious valvular pathology seen on this study. Findings Procedure Information Contrast agent, definity, is being given per protocol without apparent complications. Left Ventricle Normal left ventricular cavity size. The left ventricular systolic function is normal. The calculated ejection fraction is 58% by biplane method. There is no evidence of regional wall motion abnormalities. Diastolic function is indeterminate on the basis of available data. [id number] concentric left ventricular hypertrophy. Right Ventricle Moderately increased right ventricular cavity size. There is normal right ventricular systolic function. Atria The left atrium is moderately dilated. The right atrium is mildly dilated. Aortic Valve There is a normal trileaflet aortic valve. There is no aortic valve stenosis. There is no aortic valve regurgitation. Mitral Valve The mitral valve appears normal. There is trace mitral valve regurgitation. There is no mitral valve stenosis. Pulmonic Valve The pulmonic valve is likely normal. Tricuspid Valve There is trace tricuspid valve regurgitation. There is no evidence of pulmonary hypertension. Great Vessels The asc aorta and aortic arch are normal in size. Venous The inferior vena cava was not well visualized. Pericardium/Pleural There is no evidence of pericardial effusion. Prior Study Comparison No prior study available for comparison. Recommendations, Care & Conclusions No obvious valvular pathology seen on this study. Measurements 2D Linear Measurements IVSd: 1.33 0.6-0.9/0.6-1.0 cm LVIDd: 4.16 3.9-5.3/4.2-5.9 cm LVIDd Index: 1.81 2.4-3.2/2.2-3.1 cm/m2 LVIDs: 3.20 2.0-3.6 cm LVPWd: 1.24 0.7-1.1 cm LA Diam: 4.50 2.7-3.8/3.0-4.0 cm LAIDs Index: 1.96 1.5-2.3 cm/m2 LV Mass: 242.14 67-162/88-224 g LV Mass Index: 105.28 43-95/49-115 g/m2 LVOT Diam: 2.30 3.0+(-)1.3 cm 2D Systolic Function EF 4C: 55.60 >55% EF 2C: 59.80 >55% EF BiP: 57.80 >55% Mitral Valve MV Pk E: 0.97 MV PK A: 0.48 MV Decel Time: 228.00 E/A: 2.00 E'Lateral: 11.00 E'Medial: 5.06 E/E' Med: 19.20 E/E' Lat: 8.80 PHT: 65.00 MVA PHT: 3.38 Decel [place]: 4.25 Aortic Valve AoV Pk Rickey: 1.92 AoV Mn Rickey: 1.37 AoV VTI: 0.36 AoV Pk Grad: 15.00 Aov Mn Grad: 9.00 DONTE Cont.VTI: 2.26 LVOT LVOT Pk Rickey: 1.02 LVOT Mn Rickey: 0.65 LVOT VTI: 0.19 LVOT Pk Grad: 4.00 LVOT Mn Grad: 2.00 LVOT Diam: 2.30 LVOT Area: 4.15 Diastolic Function MV Pk E: 0.97 MV Pk A: 0.48 E/A: 2.00 E'Medial: 5.06 E/E' Med: 19.20 E' Laterial: 11.00 E/E' Lat: 8.80 Right Ventricle TAPSE (mm): 18.60 TVS' Rickey: 13.90 Tricuspid Valve TR Pk Rickey: 1.78 TR Pk Grad: 13.00 Great Vessels Aorta Sinus of Valsalva: 3.70 2.0-3.5 cm Ao Asc: 3.80 2.1-3.4 cm Ao Arch: 3.20 Pulmonary Valve PV Pk Rickey: 0.90 Peak PV Grad: 3.00 Updated in Other Vendor System with Status of Final Daniel Vu MD electronically signed on 05/30/2025 11:57:50 AM with status of Final
[2025-05-29] MEDS: guaiFEN/Codeine SF 200/20/10ML 10 ML LIQUID 5 ML PO ×2 (13:22→20:12)
--- NOTE | 2025-05-29 16:37 | P.PNIM_ITS ---
Subjective Subjective Date of Service: 05/29/25 Interval History: Persistent cough, intermittently productive Describing some persistent shortness of breath, however has relieved since use of IV furosemide earlier today. Patient denies any recurrence of fevers chills or rigors. Patient reports that his LVEF has recovered back to 50-60% (from 25%). Cardiomyopathy was 2/2 a demand ischemia a few years prior post episode of heavy exertion and significant dehydration - nonocclusive. Review of Systems Review of Systems: Yes all other systems are reviewed and are negative Physical Exam 2 Exam: Exam: General: A&O x3, oriented to time place person and situation, comfortable, no pain Cardiac: S1, S2 auscultated with no S3/4, no MRG. Well perfused. Irregularly irregular Respiratory: Normal breath sounds auscultated throughout all lung zones, without wheezing, rales. Normal rate. GI/ : No abdominal pain on palpation, no masses or distentions. MSK: Normal ambulation without pain at bony prominences or musculature Neurological: Normal neurological examination on overview, without obvious CN II-XII abnormalities. Vital Signs: Vital Signs: Last Vital Signs Temp 98.3 F 05/29/25 13:42 Pulse 83 05/29/25 13:42 Resp 13 05/29/25 13:42 BP 136/67 05/29/25 13:42 Pulse Ox 96 05/29/25 13:42 O2 Del Method Room Air 05/29/25 13:42 O2 Flow Rate 3 05/29/25 04:29 BMI result Body Mass Index 30.9 Objective Data Active Medications Acetaminophen (Acetaminophen 325 Mg Tablet) 975 mg PO Q6H PRN PRN Reason: Pain, Mild 1-3,fever,headache Apixaban (Apixaban 5 Mg Tablet) 5 mg PO BID [facility] Last Admin: 05/29/25 08:48 Dose: 5 mg Documented By: ROBB Atorvastatin Calcium (Atorvastatin Calcium 10 Mg Tablet) 10 mg PO DAILY [facility] Last Admin: 05/29/25 08:48 Dose: 10 mg Documented By: ROBB Calcium Carbonate (Calcium Carbonate 750 Mg Tab.Chew) 750 mg PO Q4H PRN PRN Reason: Heartburn Ceftriaxone Sodium (Ceftriaxone Sodium 1 Gm Vial) 1 gm IVPUSH Q24H [facility] Guaifenesin/Codeine Phosphate (Guaifen/Codeine Sf 200/20/10ml 10 Ml Liquid) 5 ml PO Q4H PRN PRN Reason: Cough Last Admin: 05/29/25 13:22 Dose: 5 ml Documented By: RANDY Azithromycin 500 mg/ Sodium (Chloride) 250 mls @ 125 mls/hr IV Q24H [facility] Levalbuterol HCl (Levalbuterol Hcl 1.25 Mg/3 Ml Vial.Neb) 1.25 mg INHALE Q3H PRN PRN Reason: Wheezing Lisinopril (Lisinopril 10 Mg Tablet) 10 mg PO DAILY [facility]; Protocol Last Admin: 05/29/25 08:48 Dose: 10 mg Documented By: ROBB Magnesium Hydroxide (Milk Of Magnesia 30 Ml Oral.Susp) 30 ml PO DAILY PRN PRN Reason: Constipation Melatonin (Melatonin 3 Mg Tablet) 6 mg PO BEDTIME PRN PRN Reason: Insomnia Sodium Chloride (0.9 % Sodium Chloride Flush 3 Ml Syringe) 3 ml IVFLUSH QSHIFT [facility] Last Admin: 05/29/25 07:42 Dose: 3 ml Documented By: ROBB Spironolactone (Spironolactone 25 Mg Tablet) 12.5 mg PO DAILY [facility]; Protocol Last Admin: 05/29/25 08:47 Dose: 12.5 mg Documented By: ROBB Venlafaxine HCl (Venlafaxine Hcl Er 75 Mg Cap.Er.24h) 75 mg PO DAILY [facility] Last Admin: 05/29/25 08:48 Dose: 75 mg Documented By: ROBB Labs 05/29/25 03:59 05/29/25 03:59 Labs: Laboratory Results - last 24 hr 05/28/25 05/28/25 05/28/25 13:49 19:53 22:36 MCV MCH MCHC RDW Plt Count MPV Absolute Nucleated RBC Nucleated RBC % (auto) Anion Gap Estim Creat Clear Calc Estimated GFR Random Glucose Lactic Acid 2.2 H* Lactic Acid F/U @ 2Hr 1.1 Calcium Magnesium Troponin I High Sens NT-Pro-B Natriuret Pep Procalcitonin 0.06 TSH 2.19 Urine Color Urine Appearance Urine pH Ur Specific [place] Urine Protein Urine Glucose (UA) Urine Ketones Urine Blood Urine Nitrite Ur Leukocyte Esterase Urine RBC Urine WBC Ur Squamous Epith Cells Urine Bacteria Hyaline Casts Respiratory Panel Ramírez Adenovirus (Rapid PCR) B.pert (TEM-PCR) B.parapertussis DNA PCR C. pneumoniae DNA (PCR) Coronavirus OC43 (PCR) Coronavirus HKU1 (PCR) Coronavirus 229E (PCR) Coronavirus NL63 (PCR) Human Metapneumovir PCR Influenza A (RT-PCR) Influenza A (H1) PCR Influ A () PCR Influenza A (H3) PCR Influenza Type A (PCR) NEGATIVE Influenza B (RT-PCR) Influenza Type B (PCR) NEGATIVE M. pneumoniae (PCR) Parainfluenza 1 (PCR) Parainfluenza 2 (PCR) Parainfluenza 3 (PCR) Parainfluenza 4 (PCR) RSV (PCR) RSV RNA Qual (PCR) NEGATIVE Entero/Rhino (PCR) SARS-CoV-2 RNA (RT-PCR) NEGATIVE 05/29/25 05/29/25 05/29/25 00:10 03:59 05:40 MCV 82.7 MCH 28.4 MCHC 34.4 RDW 15.4 Plt Count 222 MPV 10.4 Absolute Nucleated RBC 0.000 Nucleated RBC % (auto) 0.0 Anion Gap 13 Estim Creat Clear Calc 99.9 Estimated GFR > 60 Random Glucose 151 H Lactic Acid Lactic Acid F/U @ 2Hr Calcium 8.5 D Magnesium 1.9 Troponin I High Sens 19.5 NT-Pro-B Natriuret Pep 828.2 H Procalcitonin TSH Urine Color Yellow Urine Appearance Clear Urine pH 6.0 Ur Specific [place] 1.025 Urine Protein Negative Urine Glucose (UA) >=1000 H Urine Ketones Negative Urine Blood Negative Urine Nitrite Negative Ur Leukocyte Esterase Negative Urine RBC 0-2 Urine WBC 0-5 Ur Squamous Epith Cells 0-2 Urine Bacteria None Seen Hyaline Casts 0-2 Respiratory Panel Ramírez See Note Adenovirus (Rapid PCR) Not Detected B.pert (TEM-PCR) Not Detected B.parapertussis DNA PCR Not Detected C. pneumoniae DNA (PCR) Not Detected Coronavirus OC43 (PCR) Not Detected Coronavirus HKU1 (PCR) Not Detected Coronavirus 229E (PCR) Not Detected Coronavirus NL63 (PCR) Not Detected Human Metapneumovir PCR Not Detected Influenza A (RT-PCR) Not Detected Influenza A (H1) PCR Not Detected Influ A () PCR Not Detected Influenza A (H3) PCR Not Detected Influenza Type A (PCR) Influenza B (RT-PCR) Not Detected Influenza Type B (PCR) M. pneumoniae (PCR) Not Detected Parainfluenza 1 (PCR) Not Detected Parainfluenza 2 (PCR) Not Detected Parainfluenza 3 (PCR) Not Detected Parainfluenza 4 (PCR) Not Detected RSV (PCR) Not Detected RSV RNA Qual (PCR) Entero/Rhino (PCR) Detected A SARS-CoV-2 RNA (RT-PCR) Not Detected Assessment and Plan (1) Atrial fibrillation with RVR: Status: Acute (2) Upper respiratory tract infection: Status: Acute (3) Acute lactic acidosis: Status: Acute (4) Sepsis: Status: Acute (5) Pneumonia: Status: Acute (6) Acute diastolic CHF (congestive heart failure): Status: Acute Plan 74-year-old male with a history of nonischemic cardiomyopathy with recovered EF (25% -> 50-60%), HTN, HLD, AFib s/p prior cardioversion failed, presents with dyspnea, cough for multiple weeks, admitted with multifactorial acute hypoxic respiratory failure 2/2 viral URTI with sepsis & superimposed acute HFpEF exacerbation with AFib RVR. Sepsis Viral URTI Symptoms consistent with possible UTI Evidence of sepsis based on vital signs and presentation PLAN - bronchodilator and antitussives - empiric IV ceftriaxone and doxycycline - telemetry - respiratory panel and procalcitonin Acute hypoxic respiratory failure Acute HFpEF exacerbation History of nonischemic cardiomyopathy Symptoms also consistent with acute CHF exacerbation, given elevated NT proBNP 800 Most recent echocardiography 2 months ago revealing recovered LVEF. PLAN - furosemide 40 mg IV once daily - daily weights - intake/output q.6 hourly - echocardiography - supplemental oxygen as needed - continue Farxiga - continue lisinopril - continue spironolactone AFib RVR Resume patient's rate-controlling medications Check TSH Recheck troponin Echocardiography CHRONIC MEDICAL ISSUES -HTN : Continue lisinopril -HLD : Continue atorvastatin -Depression : Continue venlafaxine Total time managing care of this patient today: 45 minutes. Quality Stroke Does the patient have a stroke diagnosis?: No VTE Prior VTE?: No VTE Risk Level:: Medical - moderate - high VTE Device Contraindication: Treatment Not Indicated VTE Drug Contraindication: N/A - Med Ordered
[2025-05-29] MEDS: Furosemide 40 MG/4 ML VIAL IVPUSH (17:37)
--- NOTE | 2025-05-29 18:23 | PC.NURSE ---
pt has farxiga at the bedside. pt reports he was told our pharmacy doesn't carry it and was asked to bring it in. no active order, notified.
--- NOTE | 2025-05-29 20:11 | PM.EVENT ---
Event Note Date of Service: 05/29/25 Event Note: Chest CT scan results reviewed. IMPRESSION: Bilateral lower lobe consolidations or infiltrates. Time Spent With Patient Time: Total time managing care of this patient today ____ minutes.
[2025-05-29 20:28] LABS: Potassium, Plasma 3.9 mmol/L (3.3-5.1)
[2025-05-29 20:34] LABS: Calcium 9.3 mg/dL (8.4-10.2); Magnesium 1.9 mg/dL (1.6-2.6)
[2025-05-30] VITALS (8 sets, daily range): BP systolic 117–146; BP diastolic 62–85; PULSE 69–130; RESP 15–22; TEMP 36.4–37.2; O2SAT 93–98
[2025-05-30] MEDS: Furosemide 40 MG/4 ML VIAL IVPUSH (09:24)
[2025-05-30] MEDS: Venlafaxine HCl ER 75 MG CAP.ER.24H PO (09:25)
[2025-05-30] MEDS: Milk of Magnesia 30 ML ORAL.SUSP PO (09:37)
[2025-05-30] MEDS: guaiFEN/Codeine SF 200/20/10ML 10 ML LIQUID 5 ML PO (09:38)
--- NOTE | 2025-05-30 10:25 | ECG_ITS ---
Test Reason : arrythmia Blood Pressure : */* mmHG Vent. Rate : 117 BPM Atrial Rate : * BPM P-R Int : * ms QRS Dur : 150 ms QT Int : 368 ms P-R-T Axes : * -73 30 degrees QTcB Int : 513 ms Probable sinus rhythm with frequent PACs and PVC Right bundle branch block Left anterior fascicular block Bifascicular block Abnormal ECG When compared with ECG of 28-May-2025 23:58, Rhythm change Referred By: Gayla Gimenez Electronically Signed By: NAYAN LEROY
[2025-05-30] MEDS: Metoprolol Tartrate 12.5 MG HALFTAB PO ×2 (12:14→21:42)
[2025-05-30 12:44] LABS: Blood Urea Nitrogen 13 mg/dL (9-16); Calcium 9.1 mg/dL (8.4-10.2); Chloride 100 mmol/L (96-108); Creatinine Clr Calc Pharmacy 103.6; Estimated Glomerular Filt Rate > 60; Potassium 3.9 mmol/L (3.3-5.1); Sodium 136 mmol/L (135-145)
[2025-05-30 12:51] LABS: NT Pro B Type Natriuretic Pept 1216.4 pg/mL (<300)
[2025-05-30 12:56] LABS: Anion Gap 10 (12-20); Carbon Dioxide 30 mmol/L (22-29)
--- NOTE | 2025-05-30 14:53 | MHC.CM.PN ---
EMR REVIEWED AND PER MD ROUND, PT IS NOT MEDICALLY CLEARED FOR DISCHARGE DUE TO MANAGEMENT OF A-FIB W/ RVR, URTI, AND CHF EXACERBATION.
[2025-05-30] MEDS: 0.9 % Sodium Chloride Flush 3 ML SYRINGE IVFLUSH ×2 (15:20→23:44)
--- NOTE | 2025-05-30 17:59 | HO.PM.IMPN ---
Subjective Subjective Date of Service: 05/30/25 Interval History: Patient still has a persistent cough. Positive for rhino virus on respiratory panel. Patient denies fevers chills or rigors. Endorses some persistent wheezing and some shortness of breath with mobilization and transferring. Otherwise, no retrosternal discomfort, chest pain, palpitations, dizziness or diaphoresis. Review of Systems Review of Systems: Yes all other systems are reviewed and are negative Physical Exam Exam: Exam: General: A&O x3, oriented to time place person and situation, comfortable, no pain Cardiac: S1, S2 auscultated with no S3/4, no MRG. Well perfused. Irregularly irregular Respiratory: Normal breath sounds auscultated throughout all lung zones, without wheezing, rales. Normal rate. GI/ : No abdominal pain on palpation, no masses or distentions. MSK: Normal ambulation without pain at bony prominences or musculature Neurological: Normal neurological examination on overview, without obvious CN II-XII abnormalities. Vital Signs: Vital Signs: Last Vital Signs Temp 98.2 F 05/30/25 15:53 Pulse 98 05/30/25 15:53 Resp 15 05/30/25 15:53 BP 117/65 05/30/25 15:53 Pulse Ox 94 05/30/25 15:53 O2 Del Method Room Air 05/30/25 15:53 O2 Flow Rate 3 05/29/25 04:29 BMI result Body Mass Index 30.9 Objective Data Active Medications Acetaminophen (Acetaminophen 325 Mg Tablet) 975 mg PO Q6H PRN PRN Reason: Pain, Mild 1-3,fever,headache Apixaban (Apixaban 5 Mg Tablet) 5 mg PO BID [facility] Last Admin: 05/30/25 09:25 Dose: 5 mg Documented By: YUSRA Atorvastatin Calcium (Atorvastatin Calcium 10 Mg Tablet) 10 mg PO DAILY [facility] Last Admin: 05/30/25 09:25 Dose: 10 mg Documented By: YUSRA Calcium Carbonate (Calcium Carbonate 750 Mg Tab.Chew) 750 mg PO Q4H PRN PRN Reason: Heartburn Doxycycline Monohydrate (Doxycycline Monohydrate 100 Mg Capsule) 100 mg PO Q12H [facility] Last Admin: 05/30/25 12:14 Dose: 100 mg Documented By: YUSRA Furosemide (Furosemide 40 Mg/4 Ml Vial) 40 mg IVPUSH DAILY [facility]; Protocol Last Admin: 05/30/25 09:24 Dose: 40 mg Documented By: YUSRA Guaifenesin/Codeine Phosphate (Guaifen/Codeine Sf 200/20/10ml 10 Ml Liquid) 5 ml PO Q4H PRN PRN Reason: Cough Last Admin: 05/30/25 09:38 Dose: 5 ml Documented By: YUSRA Guaifenesin/Codeine Phosphate (Guaifen/Codeine Sf 200/20/10ml 10 Ml Liquid) 10 ml PO Q4H PRN PRN Reason: Cough Levalbuterol HCl (Levalbuterol Hcl 1.25 Mg/3 Ml Vial.Neb) 1.25 mg INHALE Q3H PRN PRN Reason: Wheezing Last Admin: 05/30/25 15:31 Dose: 1.25 mg Documented By: DUYEN Lisinopril (Lisinopril 10 Mg Tablet) 10 mg PO DAILY [facility]; Protocol Last Admin: 05/30/25 09:26 Dose: 10 mg Documented By: YUSRA Magnesium Hydroxide (Milk Of Magnesia 30 Ml Oral.Susp) 30 ml PO DAILY PRN PRN Reason: Constipation Last Admin: 05/30/25 09:37 Dose: 30 ml Documented By: YUSRA Melatonin (Melatonin 3 Mg Tablet) 6 mg PO BEDTIME PRN PRN Reason: Insomnia Last Admin: 05/29/25 20:12 Dose: 6 mg Documented By: STEPHANIE Metoprolol Tartrate (Metoprolol Tartrate 12.5 Mg Halftab) 12.5 mg PO BID [facility]; Protocol Last Admin: 05/30/25 12:14 Dose: 12.5 mg Documented By: YUSRA Prednisone (Prednisone 20 Mg Tablet) 40 mg PO DAILY [facility] Last Admin: 05/30/25 12:14 Dose: 40 mg Documented By: YUSRA Senna (Sennosides 8.6 Mg Tablet) 8.6 mg PO DAILY PRN PRN Reason: Constipation Sodium Chloride (0.9 % Sodium Chloride Flush 3 Ml Syringe) 3 ml IVFLUSH QSHIFT [facility] Last Admin: 05/30/25 15:20 Dose: 3 ml Documented By: YUSRA Spironolactone (Spironolactone 25 Mg Tablet) 12.5 mg PO DAILY [facility]; Protocol Last Admin: 05/30/25 09:25 Dose: 12.5 mg Documented By: YUSRA Venlafaxine HCl (Venlafaxine Hcl Er 75 Mg Cap.Er.24h) 75 mg PO DAILY [facility] Last Admin: 05/30/25 09:25 Dose: 75 mg Documented By: YUSRA Labs 05/29/25 03:59 05/30/25 12:12 Labs: Laboratory Results - last 24 hr 05/29/25 05/30/25 20:16 12:12 Plasma Potassium 3.9 Anion Gap 10 L Estim Creat Clear Calc 103.6 Estimated GFR > 60 Random Glucose 109 Calcium 9.3 D 9.1 Magnesium 1.9 NT-Pro-B Natriuret Pep 1216.4 H Microbiology Microbiology Results: Microbiology 05/28/25 20:13 Blood Culture - Preliminary Blood - Venous No growth after 24 hours. 05/28/25 19:53 Blood Culture - Preliminary Blood - Venous No growth after 24 hours. Assessment and Plan (1) Acute diastolic CHF (congestive heart failure): Status: Acute (2) Atrial fibrillation with RVR: Status: Acute (3) Upper respiratory tract infection: Status: Acute (4) Acute lactic acidosis: Status: Acute (5) Sepsis: Status: Acute (6) Pneumonia: Status: Acute Plan 74-year-old male with a history of nonischemic cardiomyopathy with recovered EF (25% -> 50-60%), HTN, HLD, AFib s/p prior cardioversion failed, presents with dyspnea, cough for multiple weeks, admitted with multifactorial acute hypoxic respiratory failure 2/2 viral URTI with sepsis & superimposed acute HFpEF exacerbation with AFib RVR. Sepsis Viral URTI - rhino virus Symptoms consistent with possible URTI Evidence of sepsis based on vital signs and presentation PLAN - bronchodilator and antitussives - empiric IV ceftriaxone and doxycycline; transitioned to p.o. doxycycline 100 mg b.i.d. p.o. - telemetry - respiratory panel and procalcitonin - prednisone 40 mg OD p.o. - guaifenesin/codeine Acute hypoxic respiratory failure Acute HFpEF exacerbation History of nonischemic cardiomyopathy Symptoms also consistent with acute CHF exacerbation, given elevated NT proBNP 800 Most recent echocardiography 2 months ago revealing recovered LVEF. PLAN - furosemide 40 mg IV once daily; transitioned to 40 mg OD p.o. - daily weights - intake/output q.6 hourly - echocardiography - supplemental oxygen as needed - start Farxiga tomorrow - continue lisinopril - continue spironolactone AFib RVR Resume patient's rate-controlling medications Check TSH Recheck troponin Echocardiography CHRONIC MEDICAL ISSUES -HTN : Continue lisinopril -HLD : Continue atorvastatin -Depression : Continue venlafaxine Total time managing care of this patient today: 45 minutes. Total time managing care of this patient today: 35 minutes. Quality Stroke Does the patient have a stroke diagnosis?: No VTE Prior VTE?: No VTE Risk Level:: Medical - moderate - high VTE Device Contraindication: Treatment Not Indicated VTE Drug Contraindication: N/A - Med Ordered
[2025-05-30] MEDS: guaiFEN/Codeine SF 200/20/10ML 10 ML LIQUID PO (21:42)
[2025-05-31 03:47] VITALS: BP 154/87; PULSE 70; RESP 16; TEMP 36.6; O2SAT 96
[2025-05-31 07:37] LABS: Anion Gap 10 (12-20); Blood Urea Nitrogen 18 mg/dL (9-16); Calcium 9.0 mg/dL (8.4-10.2); Carbon Dioxide 28 mmol/L (22-29); Chloride 103 mmol/L (96-108); Creatinine Clr Calc Pharmacy 106.3; Estimated Glomerular Filt Rate > 60; Potassium 4.0 mmol/L (3.3-5.1); Sodium 137 mmol/L (135-145)
[2025-05-31 08:00] VITALS: BP 143/96; PULSE 67; RESP 18; TEMP 36.4; O2SAT 96
[2025-05-31 09:01] VITALS: BP 143/96
[2025-05-31] MEDS: Venlafaxine HCl ER 75 MG CAP.ER.24H PO (09:01)
[2025-05-31 09:02] VITALS: BP 143/96
[2025-05-31] MEDS: 0.9 % Sodium Chloride Flush 3 ML SYRINGE IVFLUSH (09:02)
[2025-05-31] MEDS: Metoprolol Tartrate 12.5 MG HALFTAB PO (09:02)
[2025-05-31 11:08] VITALS: BP 135/87; PULSE 92; RESP 18; TEMP 36.2; O2SAT 92
--- NOTE | 2025-05-31 11:21 | PM.DS ---
DS: Providers Provider Date of Service: 05/31/25 Date of admission: 05/28/25 22:01 Date of discharge: 05/31/25 Primary care physician: Unknown Physician DS: Diagnosis Discharge Diagnosis (1) Acute diastolic CHF (congestive heart failure): Status: Acute (2) Atrial fibrillation with RVR: Status: Acute (3) Upper respiratory tract infection: Status: Acute (4) Acute lactic acidosis: Status: Acute (5) Sepsis: Status: Acute (6) Pneumonia: Status: Acute DS: Summary Hospital Course Hospital Course: 74-year-old male with a history of nonischemic cardiomyopathy with recovered EF (25% -> 50-60%), HTN, HLD, AFib s/p prior cardioversion failed, presents with dyspnea, cough for multiple weeks, admitted with multifactorial acute hypoxic respiratory failure 2/2 viral URTI with sepsis & superimposed acute HFpEF exacerbation with AFib RVR. PRESENTATION The patient presents to the emergency department complaining of feeling unwell over the last 10 days. Reported productive cough of greenish sputum, mild wheezing, nasal congestion and low-grade fever. He denies shortness or breath or chest pain. Patient is visiting from [place]. He was recently admitted for one-week after he had rapid a flutter requiring cardioversion; he was also found to have bilateral pleural effusions and RBBB. A cardiac cath was performed and he did not require open heart surgery or stenting. His heart rate was converted to sinus rhythm and no currently taking rate control agents. He does have urinary urgency. He denied any gastrointestinal symptoms. He denied history of tobacco smoking, alcohol abuse or illicit drug use. His , Fani, was at bedside and contributed to HPI. mentioned that the patient was seen in the urgent care and came back negative for influenza and COVID-19. ED COURSE In the ED he was found to have temperature of 101.6 degrees, heart rate of 138 consistent with AFib and tachypnea. His blood pressure has been stable, last BP is 129/63. O2 sats 90% on room air and currently on 2 L/min of supplemental oxygen via nasal cannula. Blood workup showed leukocytosis of 14.6, hemoglobin 14.5 and platelets 260. There is no leukocytosis of 14.3. Lactic acid 2.2. LFTs are normal. ProBNP is 926.2 and troponin 14.5. ECG showed rapid AFib and right bundle branch block. Acetaminophen 975 mg, albuterol 2.5 mg nebs, benzonatate 200 mg, doxycycline 100 mg IV, ceftriaxone 1 g IV, diltiazem 25 mg IV furosemide 40 mg, metoprolol tartrate 25 mg p.o. PROBLEM LIST Sepsis Viral URTI - rhino virus +ve Symptoms consistent with URTI Evidence of sepsis based on vital signs and presentation. Recovered while in hospital. RECOMMENDATIONS - continue doxycycline 100 mg b.i.d. p.o. - prednisone 40 mg OD p.o. - guaifenesin/codeine Acute hypoxic respiratory failure Acute HFpEF exacerbation History of nonischemic cardiomyopathy Symptoms also consistent with acute CHF exacerbation, given elevated NT proBNP 800 Most recent echocardiography 2 months ago revealing recovered LVEF. Repeat echocardiography revealing LVEF 50% RECOMMENDATIONS Furosemide 40 mg OD p.o. Farxiga Lisinopril Spironolactone Outpatient follow up with Cardiology AFib RVR Patient has been cardioverted in the past. Currently on anticoagulation [id number] Score 4 ; requires anticoagulation with apixaban Resume patient's rate-controlling medications Status at Discharge Cognitive/behavioral status at discharge: Alert and oriented to person place time and situation Functional status at discharge: independent ambulation Overall status at discharge: patient is back to baseline Time Attestation Total time managing care of this patient today: 45 mintues. Discharge Coordination Time (in mins): 15 Quality: Safe Use of Opioids Does Pt have an Active Cancer Diagnosis on the Problem List?: No Quality: Stroke Does the patient have a stroke diagnosis?: No Physical Exam Exam: Exam: General: A&O x3, oriented to time place person and situation, comfortable, no pain Cardiac: S1, S2 auscultated with no S3/4, no MRG. Well perfused. Irregularly irregular Respiratory: Normal breath sounds auscultated throughout all lung zones, without wheezing, rales. Normal rate. GI/ : No abdominal pain on palpation, no masses or distentions. MSK: Normal ambulation without pain at bony prominences or musculature Neurological: Normal neurological examination on overview, without obvious CN II-XII abnormalities. Vital Signs: Vital Signs: Last Vital Signs Temp 97.2 F 05/31/25 11:08 Pulse 92 05/31/25 11:08 Resp 18 05/31/25 11:08 BP 135/87 05/31/25 11:08 Pulse Ox 92 05/31/25 11:08 O2 Del Method Room Air 05/31/25 11:08 O2 Flow Rate 3 05/29/25 04:29 BMI result Body Mass Index 30.9 DS: Data Data Completed and Pending Labs on day of discharge: Laboratory Results - last 24 hr 05/30/25 05/31/25 12:12 06:44 Hold Purple Top SEE NOTE Sodium 136 137 Potassium 3.9 4.0 Chloride 100 103 Carbon Dioxide 30 H 28 Anion Gap 10 L 10 L BUN 13 18 H Creatinine 0.80 0.78 Estim Creat Clear Calc 103.6 106.3 Estimated GFR > 60 > 60 Random Glucose 109 113 Calcium 9.1 9.0 NT-Pro-B Natriuret Pep 1216.4 H Preliminary micro results at discharge 05/28/25 20:13 Blood Culture - Preliminary Blood - Venous No growth after 48 hours. 05/28/25 19:53 Blood Culture - Preliminary Blood - Venous No growth after 48 hours. Discharge Plan Discharge Anticipated Discharge Date/Time: 05/31/25 11:26 Patient Disposition: Home, Self-Care Discharge Diagnosis: Acute hypoxic respiratory failure 2/2 viral sepsis/URTI, with superimposed acute CHF exacerbation Referrals: Physician,Unknown J [Primary Care Provider, Medical] - 1 Week Discharge Medications: New doxycycline monohydrate 100 mg Capsule 100 mg PO Q12H 7 Days Qty: 14 0RF furosemide 40 mg Tablet 40 mg PO DAILY 30 Days Qty: 30 0RF Protocol: Hold for SBP< HOLD for SBP < : 90 prednisone 20 mg Tablet 40 mg PO DAILY 10 Days Qty: 20 0RF codeine-guaifenesin 10-100 mg/5 mL Liquid 10 ml PO Q4H PRN (Reason: Cough) 7 Days Qty: 120 0RF metoprolol tartrate 25 mg tablet 12.5 mg PO BID 30 Days Qty: 30 0RF Continued venlafaxine 75 mg capsule,extended release 24hr 150 mg PO DAILY atorvastatin 10 mg tablet 10 mg PO DAILY spironolactone 25 mg tablet 12.5 mg PO DAILY lisinopril 10 mg tablet 10 mg PO DAILY Eliquis 5 mg tablet 5 mg PO BID dapagliflozin propanediol [Farxiga] 10 mg tablet 10 mg PO DAILY Discharge Orders: Discharge Order (Routine); Ordered 10/04/25 Ordered By: Gayla Gimenez Diet: Advance to usual diet Activity on Discharge: As tolerated Stand Alone Forms: Patient Portal Discharge page Print Language: [place] Care Plan Goals: As above Health Concerns: As above Plan of Treatment: As above Assessment: As above
--- NOTE | 2025-05-31 11:35 | MHC.CM.PN ---
Pt. has been medically cleared to [place], he will go home via family transport, plan is self care.
== END 2025-05-31 13:30 | disposition home or self-care (01) | DRG 871 ==
LOC: HO.ED 17:17 → HO.EDOVER 22:19 → HO.IMC 05-29 16:18
PROVIDERS: Physician Assistant Medical; Admitting Provider Internal Medicine; Emergency Provider Student in an Organized Health Care Education/Training Program; Visit Provider Hospitalist
DX: A41.89 Other specified sepsis (principal); I50.33 Acute on chronic diastolic (congestive) heart failure; J96.01 Acute respiratory failure with hypoxia; I42.8 Other cardiomyopathies; I48.91 Unspecified atrial fibrillation; F32.A Depression, unspecified; I11.0 Hypertensive heart disease with heart failure; J06.9 Acute upper respiratory infection, unspecified; B97.89 Other viral agents as the cause of diseases classified elsewhere; E78.5 Hyperlipidemia, unspecified; Z20.822 Contact with and (suspected) exposure to COVID-19; Z79.01 Long term (current) use of anticoagulants; Z79.899 Other long term (current) drug therapy
CPT/HCPCS: 36415; 71046; 71250; 80048; 80076; 81001; 82310; 83605; 83735; 83880; 84132; 84145; 84443; 84484; 85025; 85027; 87040; 87633; 87637; 93005; 93306; 94640; 99285; J0456; J0696; J1163; J1938; J7120; Q9957

== ENCOUNTER → 2025-05-28 12:29 | Outpatient (BNV) | payer MEDICARE, SELFPAY | PROVIDERS: Emergency Provider Student in an Organized Health Care Education/Training Program; Visit Provider Internal Medicine | DX: I48.91 Unspecified atrial fibrillation (principal); I45.10 Unspecified right bundle-branch block; I44.4 Left anterior fascicular block | CPT/HCPCS: 93010 ==

== ENCOUNTER → 2025-05-28 17:19 | Outpatient (BNV) | payer MEDICARE, SELFPAY | PROVIDERS: Emergency Provider Student in an Organized Health Care Education/Training Program; Visit Provider Specialist | DX: R06.02 Shortness of breath (principal) | CPT/HCPCS: 71046; 71250 ==

== ENCOUNTER 2025-05-28 22:01 | Outpatient (BNV) | payer MEDICARE, SELFPAY | END 2025-05-29 12:00 | PROVIDERS: Admitting Provider Internal Medicine; Emergency Provider Student in an Organized Health Care Education/Training Program; Visit Provider Internal Medicine | DX: I42.2 Other hypertrophic cardiomyopathy (principal); I48.92 Unspecified atrial flutter | CPT/HCPCS: 93306 ==

== ENCOUNTER 2025-05-28 22:01 | Outpatient (BNV) | payer MEDICARE, SELFPAY | END 2025-05-30 10:25 | PROVIDERS: Admitting Provider Internal Medicine; Emergency Provider Student in an Organized Health Care Education/Training Program; Visit Provider Internal Medicine | DX: I45.2 Bifascicular block (principal) | CPT/HCPCS: 93010 ==

== ENCOUNTER → 2025-05-28 22:01 | Outpatient (BNV) | payer MEDICARE, SELFPAY | PROVIDERS: Admitting Provider Internal Medicine; Emergency Provider Student in an Organized Health Care Education/Training Program; Visit Provider Internal Medicine | DX: I50.31 Acute diastolic (congestive) heart failure (principal); I48.91 Unspecified atrial fibrillation; J06.9 Acute upper respiratory infection, unspecified; E87.21 Acute metabolic acidosis; A41.9 Sepsis, unspecified organism; J18.9 Pneumonia, unspecified organism | CPT/HCPCS: 99223; 99232; 99239; 99499 ==